=== PATIENT | female | born 1960 | race Caucasian/White ===

== ENCOUNTER 2017-01-24 15:39 | Emergency (ER) | payer MEDICARE, MEDICAID ==
[~2017-01-24] VITALS: Ht 160 cm; Wt 77.0 kg
[~2017-01-24 15:39] MED LIST: ALBU8.5H8 INH; BUDE10.2 INH; LEVO25TA4 PO; LOVA10TA PO; OMEP-110 PO; OXCA600T PO; PROP10TA PO; RISP1TAB45 PO; TIOT18CA INH; TOLT2CAP PO
[2017-01-24 16:20] LABS: PATH.CAST-FLAG NOT PRESENT; SPERM-FLAG NOT PRESENT; SRC-FLAG NOT PRESENT; XTAL-FLAG NOT PRESENT; YLC-FLAG NOT PRESENT
[2017-01-24] MEDS ORDERED: MORPHINE SULFATE 4 MG/ML, 1ML IVPush PRN (16:30)
[2017-01-24] MEDS ORDERED: SODIUM CHLORIDE FLUSH 10ML SYR IVF ONE (16:30)
[2017-01-24] MEDS ORDERED: ONDANSETRON 2MG/ML, 2ML IVPush ONE (16:30)
[2017-01-24] MEDS ORDERED: SODIUM CHLORIDE 0.9% 1,000ML IVBOLUS ONE (16:30)
[2017-01-24] MEDS ORDERED: ONDANSETRON 2MG/ML, 2ML ONE (16:38)
[2017-01-24] MEDS ORDERED: MORPHINE SULFATE 4 MG/ML, 1ML ONE (16:38)
[2017-01-24 16:48] LABS: HEMATOCRIT 41.1 % (34.6-47.8); HEMOGLOBIN 13.9 g/dL (11.7-16.4); WHITE BLOOD COUNT 8.6 x10^3/uL (3.4-10)
[2017-01-24 17:00] LABS: ASPARTATE AMINO TRANSFERASE 7 U/L (15-37); BLOOD UREA NITROGEN 8 mg/dL (7-18)
[2017-01-24] MEDS ORDERED: METRONIDAZOLE PMX 500MG/100ML 100 ML IV ONE (18:00)
[2017-01-24] MEDS ORDERED: CEFOTETAN PMX 1GM/50ML 50 ML IV ONE (18:00)
[2017-01-24] MEDS ORDERED: CEFOTETAN PMX 1GM/50ML 50 ML ONE (18:04)
[2017-01-24] MEDS ORDERED: METRONIDAZOLE PMX 500MG/100ML 100 ML ONE (18:04)
[2017-01-24] MEDS ORDERED: OMNIPAQUE 350 MG/ML, 100ML BOTTLE ONE (18:15)
[2017-01-24 19:04] VITALS: BP 100/70
[2017-01-26] MEDS ORDERED: NS + 20MEQ KCL 1,000 ML IV SCH (16:52)
[2017-01-26] MEDS ORDERED: METRONIDAZOLE PMX 500MG/100ML 100 ML IV SCH (17:00)
[2017-01-26] MEDS ORDERED: TRAZODONE 50MG TABLET PO PRN (17:00)
[2017-01-26] MEDS ORDERED: TEMPLATE NON-FORMULARY MED. (Albuterol Sulfate (Proair Hfa) 2 PUFF(S)) INH SCH (17:00)
[2017-01-26] MEDS ORDERED: ONDANSETRON 4 MG TABLET PO PRN (17:00)
[2017-01-26] MEDS ORDERED: morphine SULFATE 10 MG/ML, 1ML IVPush PRN (17:00)
[2017-01-26] MEDS ORDERED: CIPROFLOXACIN 500 MG TABLET PO ONE (17:00)
[2017-01-26] MEDS ORDERED: RISPERIDONE 1 MG TABLET PO SCH (21:00)
[2017-01-26] MEDS ORDERED: PROPRANOLOL 10 MG TABLET PO SCH (21:00)
[2017-01-26] MEDS ORDERED: TEMPLATE NON-FORMULARY MED. (Budesonide/Formoterol Fumarate (Symbicort 160-4.5 Mcg Inhaler INH SCH (21:00)
[2017-01-26] MEDS ORDERED: LACTULOSE 10 GM/15 ML UDC PO SCH (21:00)
[2017-01-27] MEDS ORDERED: OMEPRAZOLE 20 MG CAPSULE.DR PO SCH (09:00)
== END 2017-01-24 19:10 | disposition home or self-care (01) ==
LOC: ED 16:42
DX: K57.32 Diverticulitis of large intestine without perforation or abscess without bleeding (principal); J45.909 Unspecified asthma, uncomplicated; J44.9 Chronic obstructive pulmonary disease, unspecified; E78.5 Hyperlipidemia, unspecified; E11.9 Type 2 diabetes mellitus without complications; I10 Essential (primary) hypertension; E03.9 Hypothyroidism, unspecified; Z86.73 Personal history of transient ischemic attack (TIA), and cerebral infarction without residual deficits
CPT/HCPCS: 36415; 74177; 80053; 81001; 83605; 85025; 96361; 96365; 96367; 96375; 99285; J2405; J7030; Q9967; S0074

== ENCOUNTER 2017-01-26 13:03 | Inpatient (IN) | payer MEDICARE, MEDICAID ==
[~2017-01-26] VITALS: Ht 160 cm; Wt 81.9 kg
[2017-01-26] MEDS ORDERED: METR500T PO (13:29)
[2017-01-26] MEDS ORDERED: HYDR-3240 PO (13:29)
[2017-01-26] MEDS ORDERED: ONDA4TAB7 PO (13:29)
[2017-01-26] MEDS ORDERED: LEVO500T47 PO (13:29)
[2017-01-26] MEDS ORDERED: SODIUM CHLORIDE 0.9% 1,000 ML IV ONE (13:31)
[2017-01-26 13:51] LABS: HEMATOCRIT 39.7 % (34.6-47.8); HEMOGLOBIN 13.1 g/dL (11.7-16.4)
[2017-01-26] MEDS ORDERED: SODIUM CHLORIDE FLUSH 10ML SYR IVF ONE (14:00)
[2017-01-26] MEDS ORDERED: ONDANSETRON 2MG/ML, 2ML IVPush ONE (14:00)
[2017-01-26] MEDS ORDERED: SODIUM CHLORIDE 0.9% 1,000ML IVBOLUS ONE (14:00)
[2017-01-26] MEDS ORDERED: HYDROmorphone 1 MG/ML, 1ML IVPush PRN (14:00)
[2017-01-26 14:03] LABS: BLOOD UREA NITROGEN 7 mg/dL (7-18)
[2017-01-26 14:07] LABS: ASPARTATE AMINO TRANSFERASE 9 U/L (15-37)
[2017-01-26 16:23] VITALS: BP 131/75
[2017-01-26] MEDS ORDERED: OMNIPAQUE 350 MG/ML, 100ML BOTTLE ONE (17:05)
[2017-01-26] MEDS ORDERED: DOCUSATE 100 MG CAPSULE PO PRN (18:00)
[2017-01-26] MEDS ORDERED: GUAIFENESIN/DM 200-20MG, 10ML UDC PO PRN (18:00)
[2017-01-26] MEDS ORDERED: ONDANSETRON ODT 4 MG PO PRN (18:00)
[2017-01-26] MEDS ORDERED: TRAZODONE 50MG TABLET PO PRN (18:00)
[2017-01-26] MEDS ORDERED: DICYCLOMINE 20 MG TABLET PO PRN (19:00)
[2017-01-26 19:31] VITALS: BP 122/69
[2017-01-26 20:00] VITALS: BP 96/57
[2017-01-26] MEDS: NICOTINE 14MG/24 HR PATCH.TD24 TD SCH (20:06)
[2017-01-26] MEDS: ENOXAPARIN 40 MG/0.4 ML SQ SCH (20:06)
[2017-01-26] MEDS: METRONIDAZOLE PMX 500MG/100ML 100 ML IV SCH (20:06)
[2017-01-26] MEDS: TOLTERODINE LA 4MG CAP.ER.24H PO SCH (20:06)
[2017-01-26] MEDS: CIPROFLOXACIN 500 MG TABLET PO SCH (20:06)
[2017-01-26] MEDS: PROPRANOLOL 20 MG TABLET PO SCH (20:06)
[2017-01-26] MEDS: NS + 20MEQ KCL 1,000 ML IV SCH (20:07)
[2017-01-26] MEDS: morphine SULFATE 10 MG/ML, 1ML IVPush PRN (20:09)
[2017-01-26] MEDS: ALBUTEROL/IPRATROPIUM 2.5MG/0.5MG, 3 ML NPPB SCH (21:10)
[2017-01-27 01:00] VITALS: BP 96/57
[2017-01-27] MEDS: METRONIDAZOLE PMX 500MG/100ML 100 ML IV SCH ×3 (02:57→18:29)
[2017-01-27] MEDS: morphine SULFATE 10 MG/ML, 1ML IVPush PRN ×2 (03:12→08:32)
[2017-01-27] MEDS: NS + 20MEQ KCL 1,000 ML IV SCH ×2 (05:49→17:17)
[2017-01-27] MEDS: PROPRANOLOL 20 MG TABLET PO SCH ×2 (05:50→17:17)
[2017-01-27] MEDS: ALBUTEROL/IPRATROPIUM 2.5MG/0.5MG, 3 ML NPPB SCH ×4 (07:05→20:00)
[2017-01-27 08:00] VITALS: BP 101/62
[2017-01-27] MEDS: CIPROFLOXACIN 500 MG TABLET PO SCH (08:30)
[2017-01-27 13:58] VITALS: BP 130/84
[2017-01-27] MEDS: NICOTINE 14MG/24 HR PATCH.TD24 TD SCH (15:52)
[2017-01-27] MEDS ORDERED: OXCARBAZEPINE 150 MG TABLET PO ONE (16:00)
[2017-01-27] MEDS: ENOXAPARIN 40 MG/0.4 ML SQ SCH (18:29)
[2017-01-27 19:23] VITALS: BP 115/69
[2017-01-27] MEDS: TOLTERODINE LA 4MG CAP.ER.24H PO SCH (22:16)
[2017-01-27] MEDS: OXCARBAZEPINE 150 MG TABLET PO SCH (22:16)
[2017-01-28 00:52] VITALS: BP 146/77
[2017-01-28] MEDS: METRONIDAZOLE PMX 500MG/100ML 100 ML IV SCH ×2 (02:59→11:16)
[2017-01-28] MEDS ORDERED: LEVOTHYROXINE 50 MCG TABLET PO SCH (06:00)
[2017-01-28] MEDS: PROPRANOLOL 20 MG TABLET PO SCH (06:02)
[2017-01-28 07:15] VITALS: BP 126/83
[2017-01-28] MEDS: ALBUTEROL/IPRATROPIUM 2.5MG/0.5MG, 3 ML NPPB SCH ×3 (07:30→14:49)
[2017-01-28] MEDS: OXCARBAZEPINE 150 MG TABLET PO SCH (08:08)
[2017-01-28] MEDS: NS + 20MEQ KCL 1,000 ML IV SCH (08:08)
[2017-01-28 08:47] VITALS: BP 127/88
[2017-01-28] MEDS ORDERED: LEVO50TA PO (13:38)
== END 2017-01-28 15:33 | disposition home or self-care (01) | DRG 372 ==
LOC: ED 14:40 → 3NE 15:02
PROVIDERS: ADMIT Internal Medicine; ATTEND Internal Medicine
DX: A04.7 Enterocolitis due to Clostridium difficile (principal); K57.32 Diverticulitis of large intestine without perforation or abscess without bleeding; I10 Essential (primary) hypertension; F32.9 Major depressive disorder, single episode, unspecified; J44.9 Chronic obstructive pulmonary disease, unspecified; K21.9 Gastro-esophageal reflux disease without esophagitis; F17.200 Nicotine dependence, unspecified, uncomplicated; E78.5 Hyperlipidemia, unspecified; E03.9 Hypothyroidism, unspecified; J98.01 Acute bronchospasm; Z79.899 Other long term (current) drug therapy; Z86.73 Personal history of transient ischemic attack (TIA), and cerebral infarction without residual deficits; Z90.49 Acquired absence of other specified parts of digestive tract
CPT/HCPCS: 36415; 74022; 74177; 80053; 83690; 84443; 85025; 87324; 87493; 94640; 96361; 96374; 96375; J1170; J1650; J2405; J3480; J7620; Q9967; J2270; J7030

== ENCOUNTER 2017-09-26 19:19 | Emergency (ER) | payer MEDICARE, MEDICAID ==
[~2017-09-26] VITALS: Ht 162.6 cm; Wt 76.0 kg
[~2017-09-26 19:19] MED LIST changes: +HYDR-3240 PO; +LEVO500T47 PO; +LEVO50TA PO; +METR500T PO; +ONDA4TAB7 PO
[2017-09-26 19:22] VITALS: BP 127/72
[2017-09-26] MEDS ORDERED: ALBUTEROL/IPRATROPIUM 2.5MG/0.5MG, 3 ML ONE (20:20)
[2017-09-26] MEDS: ALBUTEROL/IPRATROPIUM 2.5MG/0.5MG, 3 ML NPPB SCH ×2 (20:30→21:26)
[2017-09-26 20:33] LABS: BASOPHILS # (AUTO) 0.05 x10^3/uL (0-0.1); BASOPHILS % (AUTO) 1 % (0-1); EOSINOPHILS # (AUTO) 0.07 x10^3/uL (0-0.4); EOSINOPHILS % (AUTO) 1 % (1-7); LYMPHOCYTES # (AUTO) 3.01 x10^3/uL (1-3.4); LYMPHOCYTES % (AUTO) 51 % (22-44); MD NO; MEAN CORPUSCULAR HGB CONC 33.2 g/dL (32.4-35.8); MEAN CORPUSCULAR VOLUME 90.3 fL (80-100); MEAN PLATELET VOLUME 9.1 fL (7.4-10.4); MONOCYTES # (AUTO) 0.45 x10^3/uL (0.2-0.8); MONOCYTES % (AUTO) 8 % (2-9); NEUTROPHILS # (AUTO) 2.33 x10^3/uL (1.8-6.8); NEUTROPHILS % (AUTO) 39 % (42-75); PLATELET COUNT 188 x10^3/uL (130-400); RED BLOOD COUNT 4.62 x10^6/uL (3.82-5.3); RED CELL DISTRIBUTION WIDTH 13.4 % (9.6-15.2)
[2017-09-26 20:44] LABS: ALBUMIN 3.6 g/dL (3.4-5.0); ANION GAP 7 mmol/L (5-15); CHLORIDE 106 mmol/L (98-107)
[2017-09-26 20:46] LABS: CREATININE 0.71 mg/dL (0.55-1.02)
[2017-09-26] MEDS ORDERED: ALBUTEROL/IPRATROPIUM 2.5MG/0.5MG, 3 ML NEB ONE (21:00)
== END 2017-09-26 21:46 | disposition home or self-care (01) ==
LOC: ED 20:00
DX: J44.1 Chronic obstructive pulmonary disease with (acute) exacerbation (principal); E11.9 Type 2 diabetes mellitus without complications; I10 Essential (primary) hypertension; E78.5 Hyperlipidemia, unspecified; E03.9 Hypothyroidism, unspecified; Z86.73 Personal history of transient ischemic attack (TIA), and cerebral infarction without residual deficits
CPT/HCPCS: 36415; 71046; 80048; 82040; 85025; 93005; 94640; 99285; J7620

== ENCOUNTER 2017-11-18 17:14 | Emergency (ER) | payer MEDICARE, MEDICAID ==
[~2017-11-18] VITALS: Ht 162.6 cm; Wt 74.9 kg
[2017-11-18 18:07] LABS: MICROSCOPIC NOT IND
[2017-11-18 18:10] LABS: CULTURE INDICATED? NO
[2017-11-18 18:14] LABS: BASOPHILS # (AUTO) 0.08 x10^3/uL (0-0.1); BASOPHILS % (AUTO) 1 % (0-1); EOSINOPHILS # (AUTO) 0.03 x10^3/uL (0-0.4); EOSINOPHILS % (AUTO) 0 % (1-7); LYMPHOCYTES # (AUTO) 2.07 x10^3/uL (1-3.4); LYMPHOCYTES % (AUTO) 18 % (22-44); MD NO; MEAN CORPUSCULAR HGB CONC 33.2 g/dL (32.4-35.8); MEAN CORPUSCULAR VOLUME 90.4 fL (80-100); MEAN PLATELET VOLUME 9.5 fL (7.4-10.4); MONOCYTES # (AUTO) 0.92 x10^3/uL (0.2-0.8); MONOCYTES % (AUTO) 8 % (2-9); NEUTROPHILS # (AUTO) 8.32 x10^3/uL (1.8-6.8); NEUTROPHILS % (AUTO) 73 % (42-75); PLATELET COUNT 227 x10^3/uL (130-400); RED BLOOD COUNT 4.84 x10^6/uL (3.82-5.3); RED CELL DISTRIBUTION WIDTH 14.4 % (9.6-15.2)
[2017-11-18 18:19] LABS: ALANINE AMINOTRANSFERASE 16 U/L (12-78); ALBUMIN 3.6 g/dL (3.4-5.0); ANION GAP 6 mmol/L (5-15); CALCIUM 9.3 mg/dL (8.5-10.1); CHLORIDE 105 mmol/L (98-107); CREATININE 0.71 mg/dL (0.55-1.02)
[2017-11-18 18:21] LABS: ALKALINE PHOSPHATASE 131 U/L (45-117); BILIRUBIN,TOTAL 0.9 mg/dL (0.2-1.0); TOTAL PROTEIN 7.2 g/dL (6.4-8.2)
[2017-11-18] MEDS ORDERED: ONDANSETRON ODT 4 MG ONE (18:52)
[2017-11-18] MEDS ORDERED: HYDROmorphone 2 MG/ML, 1ML ONE (18:52)
[2017-11-18] MEDS ORDERED: ONDANSETRON ODT 4 MG PO ONE (19:00)
[2017-11-18] MEDS ORDERED: HYDROmorphone 1 MG/ML, 1ML IVPush PRN (19:00)
[2017-11-18] MEDS ORDERED: OMNIPAQUE 350 MG/ML, 100ML BOTTLE ONE (19:49)
[2017-11-18] MEDS ORDERED: CIPROFLOXACIN 500 MG TABLET ONE (20:48)
[2017-11-18] MEDS ORDERED: METRONIDAZOLE PMX 500MG/100ML 100 ML ONE (20:48)
[2017-11-18] MEDS ORDERED: METRONIDAZOLE PMX 500MG/100ML 100 ML IVPB ONE (21:00)
[2017-11-18] MEDS ORDERED: CIPROFLOXACIN 500 MG TABLET PO ONE (21:00)
[2017-11-18 21:16] VITALS: BP 101/59
== END 2017-11-18 21:41 | disposition home or self-care (01) ==
LOC: ED 20:42 → EDIP 21:31 → UNDOADMIN 21:31 → ED 21:41
DX: K57.32 Diverticulitis of large intestine without perforation or abscess without bleeding (principal); J44.9 Chronic obstructive pulmonary disease, unspecified; E78.5 Hyperlipidemia, unspecified; I10 Essential (primary) hypertension; E11.9 Type 2 diabetes mellitus without complications; F17.210 Nicotine dependence, cigarettes, uncomplicated; Z86.73 Personal history of transient ischemic attack (TIA), and cerebral infarction without residual deficits
CPT/HCPCS: 36415; 74177; 80053; 81003; 83690; 85025; 96365; 96375; 99285; J1170; Q0162; Q9967

== ENCOUNTER 2017-11-20 09:45 | Emergency (ER) | payer MEDICARE, MEDICAID ==
[~2017-11-20] VITALS: Ht 161.3 cm; Wt 77.9 kg
[2017-11-20] MEDS ORDERED: MAALOX/HYOSCYAMINE/LIDOCAINE 45 ML BTL ONE (10:15)
[2017-11-20] MEDS ORDERED: ONDANSETRON 2MG/ML, 2ML ONE (10:15)
[2017-11-20] MEDS ORDERED: FAMOTIDINE 20 MG/2 ML ONE (10:16)
[2017-11-20] MEDS ORDERED: MAALOX/HYOSCYAMINE/LIDOCAINE 45 ML BTL PO ONE (10:30)
[2017-11-20] MEDS ORDERED: ONDANSETRON 2MG/ML, 2ML IVPush ONE (10:30)
[2017-11-20] MEDS ORDERED: SODIUM CHLORIDE FLUSH 10ML SYR IVF ONE (10:30)
[2017-11-20] MEDS ORDERED: FAMOTIDINE 20 MG/2 ML IVP ONE (10:30)
[2017-11-20] MEDS ORDERED: SODIUM CHLORIDE 0.9% 1,000ML IVBOLUS ONE (10:30)
[2017-11-20 10:55] LABS: ALANINE AMINOTRANSFERASE 18 U/L (12-78); ALBUMIN 3.3 g/dL (3.4-5.0); ANION GAP 7 mmol/L (5-15); CALCIUM 8.5 mg/dL (8.5-10.1); CHLORIDE 99 mmol/L (98-107); CREATININE 0.76 mg/dL (0.55-1.02); TROPONIN I < 0.015 ng/mL (0.000-0.045)
[2017-11-20 10:57] LABS: ALKALINE PHOSPHATASE 106 U/L (45-117); BILIRUBIN,TOTAL 0.4 mg/dL (0.2-1.0); TOTAL PROTEIN 6.5 g/dL (6.4-8.2)
[2017-11-20 10:59] LABS: BASOPHILS # (AUTO) 0.04 x10^3/uL (0-0.1); BASOPHILS % (AUTO) 1 % (0-1); EOSINOPHILS # (AUTO) 0.11 x10^3/uL (0-0.4); EOSINOPHILS % (AUTO) 1 % (1-7); LYMPHOCYTES # (AUTO) 1.73 x10^3/uL (1-3.4); LYMPHOCYTES % (AUTO) 22 % (22-44); MD NO; MEAN CORPUSCULAR HGB CONC 33.3 g/dL (32.4-35.8); MEAN CORPUSCULAR VOLUME 90.2 fL (80-100); MEAN PLATELET VOLUME 9.6 fL (7.4-10.4); MONOCYTES # (AUTO) 0.47 x10^3/uL (0.2-0.8); MONOCYTES % (AUTO) 6 % (2-9); NEUTROPHILS # (AUTO) 5.68 x10^3/uL (1.8-6.8); NEUTROPHILS % (AUTO) 71 % (42-75); PLATELET COUNT 210 x10^3/uL (130-400); RED BLOOD COUNT 4.23 x10^6/uL (3.82-5.3)
[2017-11-20 11:35] LABS: MICROSCOPIC AUTO
[2017-11-20 11:39] LABS: CULTURE INDICATED? YES
[2017-11-20] MEDS ORDERED: OMNIPAQUE 350 MG/ML, 100ML BOTTLE ONE (12:32)
[2017-11-20 13:57] VITALS: BP 99/69
== END 2017-11-20 14:01 | disposition home or self-care (01) ==
LOC: ED 11:22
DX: K57.32 Diverticulitis of large intestine without perforation or abscess without bleeding (principal); F31.9 Bipolar disorder, unspecified; E11.9 Type 2 diabetes mellitus without complications; I10 Essential (primary) hypertension; E78.5 Hyperlipidemia, unspecified; E03.9 Hypothyroidism, unspecified; J44.9 Chronic obstructive pulmonary disease, unspecified; Z86.73 Personal history of transient ischemic attack (TIA), and cerebral infarction without residual deficits; Z90.49 Acquired absence of other specified parts of digestive tract; Z90.710 Acquired absence of both cervix and uterus; Z98.51 Tubal ligation status
CPT/HCPCS: 36415; 74177; 76700; 80053; 81001; 83690; 84484; 85025; 87086; 93005; 96361; 96374; 96375; 99285; J2405; J7030; Q9967; S0028

== ENCOUNTER 2018-01-18 00:22 | Emergency (ER) | payer MEDICARE, MEDICAID ==
[~2018-01-18] VITALS: Ht 160 cm; Wt 75.8 kg
[2018-01-18 00:24] VITALS: BP 111/70
[2018-01-18] MEDS ORDERED: OXYcodone/APAP 10/325MG TABLET PO ONE (01:00)
[2018-01-18] MEDS ORDERED: ONDANSETRON ODT 4 MG PO ONE (01:00)
[2018-01-18] MEDS ORDERED: ONDANSETRON ODT 4 MG ONE (01:21)
[2018-01-18] MEDS ORDERED: OXYcodone/APAP 10/325MG TABLET ONE (01:21)
== END 2018-01-18 02:26 | disposition home or self-care (01) ==
LOC: ED 00:42
DX: K57.92 Diverticulitis of intestine, part unspecified, without perforation or abscess without bleeding (principal); E03.9 Hypothyroidism, unspecified; E78.5 Hyperlipidemia, unspecified; J44.9 Chronic obstructive pulmonary disease, unspecified; I10 Essential (primary) hypertension; E11.9 Type 2 diabetes mellitus without complications; F31.9 Bipolar disorder, unspecified; Z90.49 Acquired absence of other specified parts of digestive tract; Z90.710 Acquired absence of both cervix and uterus; Z86.73 Personal history of transient ischemic attack (TIA), and cerebral infarction without residual deficits
CPT/HCPCS: 99283; Q0162

== ENCOUNTER → 2018-04-13 | Outpatient (CLI) | payer MEDICARE, MEDICAID ==
[~2018-04-13] MED LIST changes: +ALBU18HF PO; +LEVO50TA5 PO; +LOVA40TA2 PO; -OXCA600T PO; +OXCA600T10 PO; +PROP20TA PO; +RISP2TAB3 PO
[2018-04-13 15:54] LABS: ALANINE AMINOTRANSFERASE 24 U/L (12-78); ALBUMIN 3.6 g/dL (3.4-5.0); ANION GAP 7 mmol/L (5-15); CALCIUM 8.7 mg/dL (8.5-10.1); CHLORIDE 104 mmol/L (98-107); CREATININE 0.83 mg/dL (0.55-1.02)
[2018-04-13 15:56] LABS: ALKALINE PHOSPHATASE 117 U/L (45-117); BILIRUBIN,TOTAL 0.3 mg/dL (0.2-1.0); TOTAL PROTEIN 6.6 g/dL (6.4-8.2)
[2018-04-13 16:13] LABS: BASOPHILS # (AUTO) 0.03 x10^3/uL (0-0.1); BASOPHILS % (AUTO) 0 % (0-1); EOSINOPHILS # (AUTO) 0.14 x10^3/uL (0-0.4); EOSINOPHILS % (AUTO) 2 % (1-7); LYMPHOCYTES # (AUTO) 2.88 x10^3/uL (1-3.4); LYMPHOCYTES % (AUTO) 38 % (22-44); MD NO; MEAN CORPUSCULAR HEMOGLOBIN 30.4 pg (27.0-34.8); MEAN CORPUSCULAR HGB CONC 33.2 g/dL (32.4-35.8); MEAN CORPUSCULAR VOLUME 91.5 fL (80-100); MEAN PLATELET VOLUME 9.3 fL (7.4-10.4); MONOCYTES # (AUTO) 0.52 x10^3/uL (0.2-0.8); MONOCYTES % (AUTO) 7 % (2-9); NEUTROPHILS # (AUTO) 4.08 x10^3/uL (1.8-6.8); NEUTROPHILS % (AUTO) 53 % (42-75); PLATELET COUNT 217 x10^3/uL (130-400); RED BLOOD COUNT 4.36 x10^6/uL (3.82-5.3); RED CELL DISTRIBUTION WIDTH 15.1 % (9.6-15.2)
== END | disposition home or self-care (01) ==
LOC: STAR 14:47
PROVIDERS: ATTEND Surgery
DX: Z01.818 Encounter for other preprocedural examination (principal)
CPT/HCPCS: 36415; 80053; 85025; 93005

== ENCOUNTER 2018-06-06 23:32 | Emergency (ER) | payer MEDICARE, MEDICAID ==
[~2018-06-06] VITALS: Ht 160 cm; Wt 70.2 kg
[~2018-06-06 23:32] MED LIST changes: +NICO-486 TD; -PROP10TA PO; +PROP10TA16 PO
[2018-06-06 23:48] VITALS: BP 139/72
--- NOTE | 2018-06-06 23:55 | NUR ---
HAVING ISSUES WITH ILIOSTOMY. STATED UNABLE TO GET IT TO SEAL. HAS RUN THROUGH ALL HER PRODUCTS. HAS BLEEDING AROUND STOMA AND STATED THERE IS "BLACK SKIN" FORMING AROUND EDGES OF STOMA
--- NOTE | 2018-06-07 01:02 | NUR ---
TASK RN: PT PROVIDED OSTOMY EQUIPMENT BY PRIMARY RN, JM. PT DENIES QUESTIONS/CONCERNS. DC EDUCATION PROVIDED, PT DEMONSTRATES UNDERSTANDING. PT AMBULATED STEADILY TO DC WITH RN
== END 2018-06-07 01:31 | disposition home or self-care (01) ==
LOC: ED 06-07 00:27
DX: K91.89 Other postprocedural complications and disorders of digestive system (principal); I11.9 Hypertensive heart disease without heart failure; E11.9 Type 2 diabetes mellitus without complications; F31.9 Bipolar disorder, unspecified; J44.9 Chronic obstructive pulmonary disease, unspecified; E78.5 Hyperlipidemia, unspecified; E03.9 Hypothyroidism, unspecified; Z90.89 Acquired absence of other organs; Z86.73 Personal history of transient ischemic attack (TIA), and cerebral infarction without residual deficits; Z90.49 Acquired absence of other specified parts of digestive tract
CPT/HCPCS: 99281; 99283

== ENCOUNTER 2018-06-10 08:48 | Outpatient (CLI) | payer MEDICARE, MEDICAID | END 2018-06-10 23:59 | disposition home or self-care (01) | LOC: WOUND 08:48 | PROVIDERS: ATTEND Family Medicine | DX: T81.89XA Other complications of procedures, not elsewhere classified, initial encounter (principal); F31.9 Bipolar disorder, unspecified; J44.9 Chronic obstructive pulmonary disease, unspecified; E78.5 Hyperlipidemia, unspecified; E03.9 Hypothyroidism, unspecified; I11.9 Hypertensive heart disease without heart failure; F41.9 Anxiety disorder, unspecified; Z86.73 Personal history of transient ischemic attack (TIA), and cerebral infarction without residual deficits; Z90.710 Acquired absence of both cervix and uterus; Z90.49 Acquired absence of other specified parts of digestive tract; Z87.891 Personal history of nicotine dependence; Y83.8 Other surgical procedures as the cause of abnormal reaction of the patient, or of later complication, without mention of misadventure at the time of the procedure; Y92.89 Other specified places as the place of occurrence of the external cause | CPT/HCPCS: G0463 ==

== ENCOUNTER → 2018-06-15 | Outpatient (CLI) | payer MEDICARE, MEDICAID | END | disposition home or self-care (01) | LOC: WOUND 08:42 | PROVIDERS: ATTEND Internal Medicine | DX: T81.89XD Other complications of procedures, not elsewhere classified, subsequent encounter (principal); F31.9 Bipolar disorder, unspecified; J44.9 Chronic obstructive pulmonary disease, unspecified; E11.9 Type 2 diabetes mellitus without complications; E78.5 Hyperlipidemia, unspecified; E03.9 Hypothyroidism, unspecified; I11.9 Hypertensive heart disease without heart failure; F41.9 Anxiety disorder, unspecified; Z86.73 Personal history of transient ischemic attack (TIA), and cerebral infarction without residual deficits; Z90.710 Acquired absence of both cervix and uterus; Z90.49 Acquired absence of other specified parts of digestive tract; Z87.891 Personal history of nicotine dependence; Y83.8 Other surgical procedures as the cause of abnormal reaction of the patient, or of later complication, without mention of misadventure at the time of the procedure | CPT/HCPCS: G0463 ==

== ENCOUNTER 2018-06-22 10:16 | Inpatient (IN) | payer MEDICARE, MEDICAID ==
[2018-06-17 10:12] VITALS: BP 108/68
[~2018-06-22] VITALS: Ht 160 cm; Wt 72.5 kg
[2018-06-22] MEDS ORDERED: LACTATED RINGERS 1,000 ML IV SCH (11:04)
[2018-06-22] MEDS ORDERED: MIDAZOLAM 1 MG/ML, 2ML ONE (12:39)
[2018-06-22] MEDS ORDERED: FENTANYL PF 250 MCG/5ML ONE (12:39)
[2018-06-22] MEDS ORDERED: SUCCINYLCHOLINE 20 MG/ML, 10ML ONE (12:42)
[2018-06-22] MEDS ORDERED: PROPOFOL 10 MG/ML, 20ML ONE (12:43)
[2018-06-22] MEDS ORDERED: ONDANSETRON 2MG/ML, 2ML ONE ×2 (12:46→12:47)
[2018-06-22] MEDS ORDERED: DEXAMETHASONE 4 MG/ML, 1ML ONE ×2 (12:46→12:47)
[2018-06-22] MEDS ORDERED: CEFAZOLIN 1,000 MG ONE ×2 (12:47)
[2018-06-22] MEDS ORDERED: KETOROLAC 30 MG/1 ML ONE (12:53)
[2018-06-22] MEDS ORDERED: NEOSTIGMINE 1 MG/ML, 10ML ONE (12:53)
[2018-06-22] MEDS ORDERED: ROCURONIUM 10 MG/ML,10ML ONE (12:53)
[2018-06-22] MEDS ORDERED: ALBUTEROL HFA 90 MCG/SPRAY ONE (13:01)
[2018-06-22] MEDS ORDERED: MIDAZOLAM 1 MG/ML, 2ML IV PRN (13:30)
[2018-06-22] MEDS ORDERED: HALOPERIDOL 5 MG/ML IV PRN (13:30)
[2018-06-22] MEDS ORDERED: DIAZEPAM 5 MG/ML, 2ML IVPush PRN (13:30)
[2018-06-22] MEDS ORDERED: hydrALAzine 20 MG/ML, 1ML IV PRN (13:30)
[2018-06-22] MEDS ORDERED: PROMETHAZINE 12.5 MG SUPP PR PRN (13:30)
[2018-06-22] MEDS ORDERED: EPHEDRINE 50 MG/ML, 1ML IVPush PRN (13:30)
[2018-06-22] MEDS ORDERED: ONDANSETRON 2MG/ML, 2ML IV PRN (13:30)
[2018-06-22] MEDS ORDERED: LABETALOL 5MG/ML, 20ML IV PRN (13:30)
[2018-06-22] MEDS ORDERED: ONDANSETRON ODT 8 MG PO PRN (13:30)
[2018-06-22] MEDS ORDERED: FENTANYL PF 100 MCG/2ML IV PRN (13:30)
[2018-06-22] MEDS ORDERED: MEPERIDINE/PF 25MG/0.5ML IVPush PRN (13:30)
[2018-06-22] MEDS ORDERED: PROMETHAZINE 25 MG/ML, 1ML IV PRN (13:30)
[2018-06-22] MEDS ORDERED: OXYcodone 5 MG/5 ML ORAL.SOL UDC PO PRN (13:30)
[2018-06-22] MEDS ORDERED: HYDROmorphone 2 MG/ML, 1ML IVPush PRN (13:30)
[2018-06-22] MEDS ORDERED: ALBUTEROL SULFATE 2.5 MG/3 ML NPPB PRN ×2 (13:30→17:00)
[2018-06-22] MEDS ORDERED: ACETAMINOPHEN 325 MG TABLET PO PRN (13:30)
[2018-06-22] MEDS ORDERED: MORPHINE SULFATE 4 MG/ML, 1ML IVPush PRN ×2 (13:30→14:30)
[2018-06-22] MEDS ORDERED: FENTANYL PF 100 MCG/2ML ONE ×3 (13:37→15:05)
[2018-06-22] MEDS ORDERED: GLYCOPYRROLATE 0.4 MG/2 ML, 2ML ONE (14:17)
[2018-06-22] MEDS: ACETAMINOPHEN 500 MG TABLET PO SCH ×2 (14:30→20:28)
[2018-06-22] MEDS ORDERED: ONDANSETRON 2MG/ML, 2ML IVPush PRN (14:30)
[2018-06-22] MEDS: KETOROLAC 30 MG/1 ML IVPush SCH ×2 (14:30→20:28)
[2018-06-22] MEDS ORDERED: DEXAMETHASONE 4 MG/ML, 1ML IVPush PRN (14:30)
[2018-06-22] MEDS ORDERED: HALOPERIDOL 5 MG/ML IVPush PRN (14:30)
[2018-06-22] MEDS ORDERED: OXYcodone 5 MG/5 ML ORAL.SOL UDC ONE (15:05)
[2018-06-22] MEDS ORDERED: ACETAMINOPHEN 650 MG/20.3 ML UDC ONE (15:06)
[2018-06-22] MEDS ORDERED: ALBUTEROL SULFATE 2.5 MG/3 ML NPPB SCH (17:00)
[2018-06-22] MEDS: OXYcodone IR 5MG TABLET PO PRN ×2 (19:07→23:13)
[2018-06-22 19:46] VITALS: BP 116/74
[2018-06-22 20:24] VITALS: BP 135/84
[2018-06-22] MEDS: RISPERIDONE 2 MG TABLET PO SCH (20:27)
[2018-06-22] MEDS: OXCARBAZEPINE 300MG TABLET PO SCH (20:27)
[2018-06-22] MEDS ORDERED: IPRATROPIUM 0.5 MG/2.5 ML INHA NPPB SCH (21:00)
[2018-06-22] MEDS ORDERED: ALBUTEROL/IPRATROPIUM 2.5MG/0.5MG, 3 ML NPPB SCH (21:00)
[2018-06-22] MEDS ORDERED: BUDESONIDE 0.5 MG/2 ML INHA NPPB SCH (21:00)
[2018-06-23 00:05] VITALS: BP 97/60
[2018-06-23] MEDS: KETOROLAC 30 MG/1 ML IVPush SCH ×4 (02:59→20:37)
[2018-06-23] MEDS: ACETAMINOPHEN 500 MG TABLET PO SCH ×4 (02:59→20:37)
[2018-06-23] MEDS: OXYcodone IR 5MG TABLET PO PRN ×3 (03:31→20:45)
[2018-06-23 04:00] VITALS: BP_SYST 89; BP_SYST 94; BP_DIAS 46; BP_DIAS 64
[2018-06-23 04:55] LABS: BASOPHILS # (AUTO) 0.03 x10^3/uL (0-0.1); BASOPHILS % (AUTO) 0 % (0-1); EOSINOPHILS # (AUTO) 0.01 x10^3/uL (0-0.4); EOSINOPHILS % (AUTO) 0 % (1-7); LYMPHOCYTES # (AUTO) 1.42 x10^3/uL (1-3.4); LYMPHOCYTES % (AUTO) 18 % (22-44); MD NO; MEAN CORPUSCULAR HEMOGLOBIN 30.5 pg (27.0-34.8); MEAN CORPUSCULAR HGB CONC 33.3 g/dL (32.4-35.8); MEAN CORPUSCULAR VOLUME 91.4 fL (80-100); MEAN PLATELET VOLUME 9.2 fL (7.4-10.4); MONOCYTES # (AUTO) 0.44 x10^3/uL (0.2-0.8); MONOCYTES % (AUTO) 6 % (2-9); NEUTROPHILS % (AUTO) 76 % (42-75); PLATELET COUNT 174 x10^3/uL (130-400); RED BLOOD COUNT 3.69 x10^6/uL (3.82-5.3); RED CELL DISTRIBUTION WIDTH 14.1 % (9.6-15.2)
[2018-06-23 05:00] LABS: ALBUMIN 2.7 g/dL (3.4-5.0); ANION GAP 8 mmol/L (5-15); CALCIUM 8.1 mg/dL (8.5-10.1); CHLORIDE 106 mmol/L (98-107)
[2018-06-23 05:02] LABS: CREATININE 0.58 mg/dL (0.55-1.02)
[2018-06-23] MEDS ORDERED: LEVOTHYROXINE 25 MCG TABLET ONE (05:59)
[2018-06-23] MEDS ORDERED: PROPRANOLOL 40 MG TABLET ONE (05:59)
[2018-06-23] MEDS: LEVOTHYROXINE 50 MCG TABLET PO SCH (06:02)
[2018-06-23] MEDS: PROPRANOLOL 20 MG TABLET PO SCH ×2 (06:02→12:47)
[2018-06-23 07:35] VITALS: BP 89/55
[2018-06-23] MEDS: ENOXAPARIN 40 MG/0.4 ML SQ SCH (08:27)
[2018-06-23] MEDS: OXCARBAZEPINE 300MG TABLET PO SCH ×2 (08:27→20:37)
[2018-06-23 12:48] VITALS: BP 93/60
[2018-06-23 14:46] VITALS: BP 89/55
[2018-06-23 18:42] VITALS: BP 102/65
[2018-06-23] MEDS: RISPERIDONE 2 MG TABLET PO SCH (20:37)
[2018-06-24] MEDS: OXYcodone IR 5MG TABLET PO PRN ×3 (01:01→10:02)
[2018-06-24 01:38] VITALS: BP 113/61
[2018-06-24] MEDS: ACETAMINOPHEN 500 MG TABLET PO SCH ×2 (03:20→10:02)
[2018-06-24] MEDS: KETOROLAC 30 MG/1 ML IVPush SCH ×2 (03:20→10:02)
[2018-06-24 05:21] LABS: ANION GAP 7 mmol/L (5-15); CALCIUM 8.1 mg/dL (8.5-10.1); CHLORIDE 101 mmol/L (98-107); CREATININE 0.52 mg/dL (0.55-1.02)
[2018-06-24 05:25] LABS: BASOPHILS # (AUTO) 0.02 x10^3/uL (0-0.1); BASOPHILS % (AUTO) 0 % (0-1); EOSINOPHILS # (AUTO) 0.16 x10^3/uL (0-0.4); EOSINOPHILS % (AUTO) 2 % (1-7); LYMPHOCYTES # (AUTO) 0.98 x10^3/uL (1-3.4); LYMPHOCYTES % (AUTO) 12 % (22-44); MD NO; MEAN CORPUSCULAR HEMOGLOBIN 30.3 pg (27.0-34.8); MEAN CORPUSCULAR HGB CONC 33.1 g/dL (32.4-35.8); MEAN CORPUSCULAR VOLUME 91.3 fL (80-100); MEAN PLATELET VOLUME 9.4 fL (7.4-10.4); MONOCYTES # (AUTO) 0.67 x10^3/uL (0.2-0.8); MONOCYTES % (AUTO) 8 % (2-9); NEUTROPHILS # (AUTO) 6.11 x10^3/uL (1.8-6.8); NEUTROPHILS % (AUTO) 77 % (42-75); PLATELET COUNT 181 x10^3/uL (130-400); RED BLOOD COUNT 3.79 x10^6/uL (3.82-5.3); RED CELL DISTRIBUTION WIDTH 13.6 % (9.6-15.2)
[2018-06-24] MEDS ORDERED: LEVOTHYROXINE 25 MCG TABLET ONE (06:25)
[2018-06-24] MEDS ORDERED: PROPRANOLOL 40 MG TABLET ONE (06:25)
[2018-06-24] MEDS: LEVOTHYROXINE 50 MCG TABLET PO SCH (06:28)
[2018-06-24] MEDS: PROPRANOLOL 20 MG TABLET PO SCH ×2 (06:28→13:05)
[2018-06-24 06:50] VITALS: BP 108/70
[2018-06-24] MEDS: OXCARBAZEPINE 300MG TABLET PO SCH (10:01)
[2018-06-24] MEDS: ENOXAPARIN 40 MG/0.4 ML SQ SCH (10:02)
[2018-06-24 13:02] VITALS: BP 111/71
[2018-06-24] MEDS ORDERED: ONDA4TAB7 PO (14:44)
[2018-06-24] MEDS ORDERED: OXYC5TAB2 PO (14:44)
== END 2018-06-24 15:00 | disposition home or self-care (01) | DRG 329 ==
LOC: ORIP 10:16 → EDSTATUS 12:30 → 4NOR 16:25 → DCLOUNGE 06-24 14:51
PROVIDERS: ADMIT Surgery; ATTEND Surgery
PROC: BD14YZZ Fluoroscopy of Colon using Other Contrast (ICD-10-PCS; 2018-06-22)
PROC: 0DQB0ZZ Repair Ileum, Open Approach (ICD-10-PCS; principal; 2018-06-22 12:30)
DX: Z43.2 Encounter for attention to ileostomy (principal); E43 Unspecified severe protein-calorie malnutrition; F31.9 Bipolar disorder, unspecified; I10 Essential (primary) hypertension; J44.9 Chronic obstructive pulmonary disease, unspecified; E03.9 Hypothyroidism, unspecified
CPT/HCPCS: 36415; 80048; 82040; 85025; 86850; 86900; 88304; G0378; J0690; J1100; J1650; J1885; J2250; J2405; J2704; J2710; J3010; J0330; J7120

== ENCOUNTER 2018-06-25 16:35 | Inpatient (IN) | payer MEDICARE, MEDICAID ==
[~2018-06-25] VITALS: Ht 160 cm; Wt 74.6 kg
[~2018-06-25 16:35] MED LIST changes: +OXYC5TAB2 PO
--- NOTE | 2018-06-25 17:00 | NUR ---
PT IN XRAY NOW.
--- NOTE | 2018-06-25 17:00 | NUR ---
FIRST CONTACT WITH PT. PT C/O ALL QUADRANTS ABD PAIN AFTER REVERSAL OF ILIOSTOMY 2 DAYS AGO. PT C/O NAUSEA WELL. PT AOX4. RESPS EVEN AND UNLABORED. BP/SPO2 MONITORS IN PLACE. CALL LIGHT WITHIN REACH. AT BEDSIDE AT THIS TIME. AWAITING ORDERS.
--- NOTE | 2018-06-25 17:15 | NUR ---
PT BACK TO ROOM FROM XRAY.
--- NOTE | 2018-06-25 17:24 | NUR ---
PT AMB TO BR AND BACK TO ROOM WITH STEADY GAIT FOR UA. UA SENT.
[2018-06-25] MEDS ORDERED: D5%-0.45NACL+KCL 20MEQ 1,000 ML IV ONE (17:30)
[2018-06-25 17:33] LABS: ALANINE AMINOTRANSFERASE 18 U/L (12-78); ALBUMIN 2.9 g/dL (3.4-5.0); ANION GAP 9 mmol/L (5-15); CALCIUM 9.1 mg/dL (8.5-10.1); CHLORIDE 102 mmol/L (98-107)
[2018-06-25 17:36] LABS: ALKALINE PHOSPHATASE 143 U/L (45-117); BILIRUBIN,TOTAL 0.4 mg/dL (0.2-1.0); CREATININE 0.66 mg/dL (0.55-1.02); TOTAL PROTEIN 6.7 g/dL (6.4-8.2)
[2018-06-25 17:46] LABS: MEAN CORPUSCULAR HEMOGLOBIN 30.1 pg (27.0-34.8); MEAN CORPUSCULAR HGB CONC 33.4 g/dL (32.4-35.8); MEAN CORPUSCULAR VOLUME 90.1 fL (80-100); MEAN PLATELET VOLUME 9.6 fL (7.4-10.4); PLATELET COUNT 266 x10^3/uL (130-400); RED BLOOD COUNT 4.58 x10^6/uL (3.82-5.3); RED CELL DISTRIBUTION WIDTH 13.6 % (9.6-15.2)
[2018-06-25 18:02] LABS: BASOPHILS # (AUTO) 0.03 x10^3/uL (0-0.1); BASOPHILS % (AUTO) 0 % (0-1); EOSINOPHILS # (AUTO) 0.11 x10^3/uL (0-0.4); EOSINOPHILS % (AUTO) 1 % (1-7); LYMPHOCYTES # (AUTO) 1.38 x10^3/uL (1-3.4); LYMPHOCYTES % (AUTO) 14 % (22-44); MD SCAN; MONOCYTES # (AUTO) 0.83 x10^3/uL (0.2-0.8); MONOCYTES % (AUTO) 8 % (2-9); NEUTROPHILS # (AUTO) 7.55 x10^3/uL (1.8-6.8); NEUTROPHILS % (AUTO) 76 % (42-75)
[2018-06-25 18:03] LABS: MICROSCOPIC INDICATED
[2018-06-25 18:26] LABS: CULTURE INDICATED? YES
--- NOTE | 2018-06-25 18:27 | NUR ---
PIV started, pt medicated per JUL. Pt's friend at bedside. Pt c/o increasing pain and states that it is "like contractions."
[2018-06-25] MEDS ORDERED: FENTANYL PF 100 MCG/2ML ONE (18:44)
--- NOTE | 2018-06-25 18:48 | NUR ---
update shared with pt's friend Magdalena with pt's ok.
[2018-06-25] MEDS ORDERED: BENZOCAINE 20% SPRAY 0.5ML ONE (18:56)
--- NOTE | 2018-06-25 18:56 | NUR ---
pt medicated per emar for pain. pt tolerated well. pt aox4. resps even and unlabored. pt's firiend at bedside. all monitors in place. call light within reach.
[2018-06-25] MEDS ORDERED: FENTANYL PF 100 MCG/2ML IV ONE (19:00)
[2018-06-25] MEDS: D5%-0.45NACL+KCL 20MEQ 1,000 ML IV SCH (19:04)
--- NOTE | 2018-06-25 19:24 | NUR ---
REPORT GIVEN TO ANGELLA BLACK. ALL QUESTIONS ANSWERED.
[2018-06-25] MEDS ORDERED: LABETALOL 5MG/ML, 20ML IVPush PRN (19:30)
[2018-06-25] MEDS ORDERED: ENALAPRILAT 1.25 MG/ML, 2ML IVPush PRN (19:30)
[2018-06-25] MEDS: PROPRANOLOL 20 MG TABLET PO SCH (19:30)
[2018-06-25] MEDS ORDERED: ALBUTEROL SULFATE 2.5 MG/3 ML HHN PRN (19:30)
[2018-06-25] MEDS ORDERED: LIDOCAINE GEL 2%, 5ML TP ONE (19:30)
--- NOTE | 2018-06-25 19:42 | NUR ---
NG TUBE INSERTED BY MONSERRAT BLACK. TUBE PLACEMENT VERIFIED BY AUSCULTATION. PT TOLERATED WELL. PT AOX4. RESPS EVEN AND UNLABORED.
--- NOTE | 2018-06-25 19:54 | NUR ---
VERBAL ORDER RECEIVED FROM MYLES SHARMA FOR ABD XRAY TO CONFIRM NG TUBE PLACEMENT. PT TRANSPORTED TO SURGICAL FLOOR, [facility] AT TRANSPORT.
[2018-06-25] MEDS ORDERED: BENZOCAINE AEROSOL SPRAY 20%, 60ML TP PRN (20:30)
[2018-06-25] MEDS: BUDESONIDE 0.5 MG/2 ML INHA NPPB SCH (21:00)
[2018-06-25] MEDS: ONDANSETRON 2MG/ML, 2ML IVPush PRN (21:24)
[2018-06-25] MEDS: morphine SULFATE 10 MG/ML, 1ML IVPush PRN (21:24)
[2018-06-25] MEDS: OXCARBAZEPINE 300MG TABLET PO SCH (23:29)
[2018-06-25] MEDS: RISPERIDONE 2 MG TABLET PO SCH (23:29)
[2018-06-25] MEDS: FAMOTIDINE 20 MG/2 ML IVPush SCH (23:30)
[2018-06-26] MEDS: morphine SULFATE 10 MG/ML, 1ML IVPush PRN ×4 (00:26→21:17)
[2018-06-26 00:42] VITALS: BP 107/69
[2018-06-26 05:37] LABS: BASOPHILS # (AUTO) 0.02 x10^3/uL (0-0.1); BASOPHILS % (AUTO) 0 % (0-1); EOSINOPHILS # (AUTO) 0.22 x10^3/uL (0-0.4); EOSINOPHILS % (AUTO) 3 % (1-7); LYMPHOCYTES # (AUTO) 1.48 x10^3/uL (1-3.4); LYMPHOCYTES % (AUTO) 18 % (22-44); MD NO; MEAN CORPUSCULAR HEMOGLOBIN 29.7 pg (27.0-34.8); MEAN CORPUSCULAR HGB CONC 32.6 g/dL (32.4-35.8); MEAN CORPUSCULAR VOLUME 91.2 fL (80-100); MEAN PLATELET VOLUME 9.4 fL (7.4-10.4); MONOCYTES # (AUTO) 0.74 x10^3/uL (0.2-0.8); MONOCYTES % (AUTO) 9 % (2-9); NEUTROPHILS % (AUTO) 70 % (42-75); PLATELET COUNT 247 x10^3/uL (130-400); RED BLOOD COUNT 4.07 x10^6/uL (3.82-5.3); RED CELL DISTRIBUTION WIDTH 13.7 % (9.6-15.2)
[2018-06-26 05:42] LABS: CHLORIDE 105 mmol/L (98-107)
[2018-06-26 05:47] LABS: ANION GAP 7 mmol/L (5-15); CALCIUM 8.4 mg/dL (8.5-10.1); CREATININE 0.58 mg/dL (0.55-1.02)
[2018-06-26] MEDS: ONDANSETRON 2MG/ML, 2ML IVPush PRN ×2 (07:24→21:17)
[2018-06-26 07:54] VITALS: BP 112/68
[2018-06-26] MEDS: D5%-0.45NACL+KCL 20MEQ 1,000 ML IV SCH ×2 (08:06→17:00)
[2018-06-26] MEDS: PROPRANOLOL 20 MG TABLET PO SCH ×2 (08:28→13:14)
[2018-06-26] MEDS: FAMOTIDINE 20 MG/2 ML IVPush SCH (08:28)
[2018-06-26] MEDS: OXCARBAZEPINE 300MG TABLET PO SCH ×2 (08:28→21:18)
[2018-06-26] MEDS ORDERED: POTASSIUM CHLORIDE 40 MEQ in SODIUM CHLORIDE 0.9% 500 ML IV ONE (09:00)
[2018-06-26] MEDS: BUDESONIDE 0.5 MG/2 ML INHA NPPB SCH ×2 (09:00→21:15)
[2018-06-26] MEDS: IPRATROPIUM 0.5 MG/2.5 ML INHA HHN SCH ×3 (09:00→21:15)
[2018-06-26] MEDS ORDERED: TEMPLATE NON-FORMULARY MED. (Budesonide/Formoterol Fumarate (Symbicort 160-4.5 Mcg Inhaler INH SCH (09:00)
[2018-06-26 13:14] VITALS: BP 119/82
[2018-06-26 14:00] VITALS: BP 119/82
[2018-06-26] MEDS: ALBUTEROL SULFATE 2.5 MG/3 ML HHN PRN (14:04)
[2018-06-26] MEDS ORDERED: TPN PER PHARMACY MC PRN (15:00)
[2018-06-26] MEDS ORDERED: SMOF TPN IV SCH ×2 (17:00)
[2018-06-26] MEDS ORDERED: DEXTROSE 50%, 50ML SYRINGE IVPush PRN (17:00)
[2018-06-26] MEDS ORDERED: DEXTROSE 10% 500 ML IV PRN (17:00)
[2018-06-26] MEDS ORDERED: [UNRECOGNIZED DRUG - OTHER] IV SCH (17:00)
[2018-06-26] MEDS ORDERED: FAT EMUL IV SCH ×2 (17:00)
[2018-06-26] MEDS ORDERED: [UNRECOGNIZED DRUG - OTHER] IV SCH (17:00)
[2018-06-26] MEDS ORDERED: AMINO ACID 10% IV SCH ×2 (17:00)
[2018-06-26] MEDS ORDERED: DEXTROSE 70% IV SCH ×2 (17:00)
[2018-06-26] MEDS: D5%-0.45% NACL 1,000 ML IV SCH (17:20)
[2018-06-26] MEDS: FILTER, DISP 1.2 MICRON FOR TPN/PVN IV PRN (17:20)
[2018-06-26 18:53] VITALS: BP 124/74
[2018-06-26] MEDS: RISPERIDONE 2 MG TABLET PO SCH (21:18)
[2018-06-26] MEDS: INSULIN REGULAR LOW DOSE QDAY SQ-INSULIN SCH (22:14)
[2018-06-26] MEDS: INSULIN REGULAR LOW DOSE Q6H X 48HRS SQ-INSULIN SCH (22:14)
[2018-06-27 00:12] VITALS: BP 94/53
[2018-06-27] MEDS: ACETAMINOPHEN 325 MG TABLET PO PRN ×3 (00:52→17:40)
[2018-06-27] MEDS: INSULIN REGULAR LOW DOSE Q6H X 48HRS SQ-INSULIN SCH ×4 (03:30→20:43)
[2018-06-27] MEDS: D5%-0.45% NACL 1,000 ML IV SCH ×2 (03:57→14:51)
[2018-06-27 04:08] LABS: ALANINE AMINOTRANSFERASE 9 U/L (12-78); ALBUMIN 2.2 g/dL (3.4-5.0); ANION GAP 6 mmol/L (5-15); CALCIUM 8.1 mg/dL (8.5-10.1); CHLORIDE 106 mmol/L (98-107); CREATININE 0.48 mg/dL (0.55-1.02)
[2018-06-27 04:13] LABS: ALKALINE PHOSPHATASE 96 U/L (45-117); BILIRUBIN,TOTAL 0.2 mg/dL (0.2-1.0); TOTAL PROTEIN 5.2 g/dL (6.4-8.2); TRIGLYCERIDES 114 mg/dL (50-200)
[2018-06-27] MEDS: LEVOTHYROXINE 50 MCG TABLET PO SCH (06:38)
[2018-06-27 07:42] VITALS: BP 111/72
[2018-06-27] MEDS: morphine SULFATE 10 MG/ML, 1ML IVPush PRN ×2 (08:39→20:43)
[2018-06-27] MEDS: OXCARBAZEPINE 300MG TABLET PO SCH ×2 (08:39→20:43)
[2018-06-27] MEDS: PROPRANOLOL 20 MG TABLET PO SCH ×2 (08:52→12:00)
[2018-06-27 10:05] LABS: MEAN CORPUSCULAR HEMOGLOBIN 29.6 pg (27.0-34.8); MEAN CORPUSCULAR HGB CONC 32.7 g/dL (32.4-35.8); MEAN CORPUSCULAR VOLUME 90.8 fL (80-100); MEAN PLATELET VOLUME 8.9 fL (7.4-10.4); PLATELET COUNT 238 x10^3/uL (130-400); RED BLOOD COUNT 3.62 x10^6/uL (3.82-5.3); RED CELL DISTRIBUTION WIDTH 13.6 % (9.6-15.2)
[2018-06-27 10:34] LABS: MD YES
[2018-06-27 10:35] LABS: BAND#(MANUAL) 0.62 x10^3/uL; BANDS%(MANUAL) 7 % (0-7); BASOS#(MANUAL) 0.09 x10^3/uL (0-0.1); BASOS% (MANUAL) 1 % (0-1); EOS#(MANUAL) 0.45 x10^3/uL (0.0-0.4); EOS% (MANUAL) 5 % (1-7); LYMPH#(MANUAL) 0.62 x10^3/uL (1-3.4); LYMPHS% (MANUAL) 7 % (22-44); MONOS#(MANUAL) 0.53 x10^3/uL (0.3-2.7); MONOS% (MANUAL) 6 % (2-9); MYELOCYTES# (MANUAL) 0.09 x10^3/uL (0-0); MYELOCYTES% (MANUAL) 1 % (0-0); SEGS% (MANUAL) 73 % (42-75)
[2018-06-27 10:36] LABS: <PLATELET ESTIMATE> ADEQUATE; <PLT MORPHOLOGY> NORMAL PLT MORPH; <RBC MORPHOLOGY> NORMAL
[2018-06-27] MEDS: NICOTINE 7 MG/24 HR PATCH.TD24 TD SCH (11:17)
[2018-06-27 12:06] VITALS: BP 100/65
[2018-06-27] MEDS ORDERED: DEXTROSE 70% IV SCH (17:00)
[2018-06-27] MEDS ORDERED: AMINO ACID 10% IV SCH (17:00)
[2018-06-27] MEDS ORDERED: FAT EMUL IV SCH (17:00)
[2018-06-27] MEDS ORDERED: SMOF TPN IV SCH (17:00)
[2018-06-27] MEDS ORDERED: [UNRECOGNIZED DRUG - OTHER] IV SCH (17:00)
[2018-06-27] MEDS: FILTER, DISP 1.2 MICRON FOR TPN/PVN IV PRN (17:40)
[2018-06-27] MEDS: RISPERIDONE 2 MG TABLET PO SCH (20:43)
[2018-06-27] MEDS: ONDANSETRON 2MG/ML, 2ML IVPush PRN (20:43)
[2018-06-27 20:58] VITALS: BP 103/66
[2018-06-27] MEDS: INSULIN REGULAR LOW DOSE QDAY SQ-INSULIN SCH (21:00)
[2018-06-28] MEDS: INSULIN REGULAR LOW DOSE Q6H X 48HRS SQ-INSULIN SCH ×3 (03:00→16:35)
[2018-06-28 03:06] VITALS: BP 108/71
[2018-06-28] MEDS: ACETAMINOPHEN 325 MG TABLET PO PRN ×4 (03:13→22:14)
[2018-06-28] MEDS: D5%-0.45% NACL 1,000 ML IV SCH ×2 (03:14→16:37)
[2018-06-28] MEDS: LEVOTHYROXINE 50 MCG TABLET PO SCH (04:49)
[2018-06-28] MEDS: morphine SULFATE 10 MG/ML, 1ML IVPush PRN ×2 (04:49→16:16)
[2018-06-28 05:20] LABS: ANION GAP 5 mmol/L (5-15); CALCIUM 8.1 mg/dL (8.5-10.1); CHLORIDE 106 mmol/L (98-107); CREATININE 0.57 mg/dL (0.55-1.02)
[2018-06-28 07:25] VITALS: BP 106/70
[2018-06-28] MEDS: OXCARBAZEPINE 300MG TABLET PO SCH ×2 (09:47→20:12)
[2018-06-28] MEDS: NICOTINE 7 MG/24 HR PATCH.TD24 TD SCH (09:48)
[2018-06-28] MEDS ORDERED: PROPRANOLOL 40 MG TABLET ONE (09:57)
[2018-06-28] MEDS: PROPRANOLOL 20 MG TABLET PO SCH ×2 (10:04→12:00)
[2018-06-28 12:44] VITALS: BP 90/66
[2018-06-28] MEDS: FILTER, DISP 1.2 MICRON FOR TPN/PVN IV PRN (16:36)
[2018-06-28] MEDS ORDERED: AMINO ACID 10% IV SCH (17:00)
[2018-06-28] MEDS ORDERED: DEXTROSE 70% IV SCH (17:00)
[2018-06-28] MEDS ORDERED: [UNRECOGNIZED DRUG - OTHER] IV SCH (17:00)
[2018-06-28] MEDS ORDERED: FAT EMUL IV SCH (17:00)
[2018-06-28] MEDS ORDERED: SMOF TPN IV SCH (17:00)
[2018-06-28 18:52] VITALS: BP 121/71
[2018-06-28] MEDS: RISPERIDONE 2 MG TABLET PO SCH (20:12)
[2018-06-28] MEDS: INSULIN REGULAR LOW DOSE QDAY SQ-INSULIN SCH (20:15)
[2018-06-29] MEDS: GUAIFENESIN 100 MG/5 ML, 5ML UDC PO PRN ×4 (00:06→18:39)
[2018-06-29] MEDS: morphine SULFATE 10 MG/ML, 1ML IVPush PRN ×2 (00:11→20:41)
[2018-06-29] MEDS: ALBUTEROL SULFATE 2.5 MG/3 ML HHN PRN ×2 (00:15→19:06)
[2018-06-29 01:02] VITALS: BP 114/70
[2018-06-29] MEDS: LEVOTHYROXINE 50 MCG TABLET PO SCH (04:16)
[2018-06-29] MEDS: ACETAMINOPHEN 325 MG TABLET PO PRN ×3 (04:16→18:40)
[2018-06-29] MEDS: D5%-0.45% NACL 1,000 ML IV SCH ×2 (04:17→17:01)
[2018-06-29 04:51] LABS: BASOPHILS # (AUTO) 0.05 x10^3/uL (0-0.1); BASOPHILS % (AUTO) 1 % (0-1); EOSINOPHILS # (AUTO) 0.44 x10^3/uL (0-0.4); EOSINOPHILS % (AUTO) 6 % (1-7); LYMPHOCYTES # (AUTO) 1.46 x10^3/uL (1-3.4); LYMPHOCYTES % (AUTO) 19 % (22-44); MD NO; MEAN CORPUSCULAR HEMOGLOBIN 30.2 pg (27.0-34.8); MEAN CORPUSCULAR HGB CONC 33.1 g/dL (32.4-35.8); MEAN CORPUSCULAR VOLUME 91.2 fL (80-100); MEAN PLATELET VOLUME 8.7 fL (7.4-10.4); MONOCYTES # (AUTO) 0.51 x10^3/uL (0.2-0.8); MONOCYTES % (AUTO) 7 % (2-9); NEUTROPHILS # (AUTO) 5.04 x10^3/uL (1.8-6.8); NEUTROPHILS % (AUTO) 67 % (42-75); PLATELET COUNT 259 x10^3/uL (130-400); RED BLOOD COUNT 3.47 x10^6/uL (3.82-5.3); RED CELL DISTRIBUTION WIDTH 13.9 % (9.6-15.2)
[2018-06-29 05:08] LABS: ANION GAP 6 mmol/L (5-15); CALCIUM 8.2 mg/dL (8.5-10.1); CHLORIDE 108 mmol/L (98-107); CREATININE 0.53 mg/dL (0.55-1.02)
[2018-06-29] MEDS: PROPRANOLOL 20 MG TABLET PO SCH ×2 (08:00→11:44)
[2018-06-29] MEDS ORDERED: PROPRANOLOL 40 MG TABLET ONE (08:39)
[2018-06-29] MEDS: OXCARBAZEPINE 300MG TABLET PO SCH ×2 (08:47→20:41)
[2018-06-29 09:06] VITALS: BP 117/71
[2018-06-29] MEDS: NICOTINE 7 MG/24 HR PATCH.TD24 TD SCH (10:08)
[2018-06-29 13:38] VITALS: BP 106/71
[2018-06-29] MEDS ORDERED: [UNRECOGNIZED DRUG - OTHER] IV SCH (17:00)
[2018-06-29] MEDS ORDERED: FILTER, DISP 1.2 MICRON FOR TPN/PVN IV PRN (17:00)
[2018-06-29] MEDS ORDERED: SMOF TPN IV SCH (17:00)
[2018-06-29] MEDS ORDERED: DEXTROSE 70% IV SCH (17:00)
[2018-06-29] MEDS ORDERED: AMINO ACID 10% IV SCH (17:00)
[2018-06-29] MEDS ORDERED: FAT EMUL IV SCH (17:00)
[2018-06-29 19:37] VITALS: BP 124/77
[2018-06-29] MEDS: RISPERIDONE 2 MG TABLET PO SCH (20:41)
[2018-06-30 01:00] VITALS: BP 123/81
[2018-06-30] MEDS: ACETAMINOPHEN 325 MG TABLET PO PRN ×3 (02:22→20:26)
[2018-06-30] MEDS: GUAIFENESIN 100 MG/5 ML, 5ML UDC PO PRN ×3 (03:10→20:32)
[2018-06-30] MEDS: morphine SULFATE 10 MG/ML, 1ML IVPush PRN (04:23)
[2018-06-30] MEDS: ALBUTEROL SULFATE 2.5 MG/3 ML HHN PRN ×2 (04:27→22:44)
[2018-06-30] MEDS: LEVOTHYROXINE 50 MCG TABLET PO SCH (05:37)
[2018-06-30] MEDS: D5%-0.45% NACL 1,000 ML IV SCH ×2 (05:38→18:43)
[2018-06-30 06:52] LABS: ANION GAP 7 mmol/L (5-15); CALCIUM 8.3 mg/dL (8.5-10.1); CHLORIDE 108 mmol/L (98-107); CREATININE 0.58 mg/dL (0.55-1.02)
[2018-06-30 07:12] VITALS: BP 113/71
[2018-06-30] MEDS: INSULIN REGULAR LOW DOSE QDAY SQ-INSULIN SCH (07:49)
[2018-06-30] MEDS: PROPRANOLOL 20 MG TABLET PO SCH ×2 (08:00→12:00)
[2018-06-30] MEDS: OXCARBAZEPINE 300MG TABLET PO SCH ×2 (09:29→20:26)
[2018-06-30] MEDS ORDERED: PROPRANOLOL 40 MG TABLET ONE ×2 (09:32→12:15)
[2018-06-30] MEDS: NICOTINE 7 MG/24 HR PATCH.TD24 TD SCH (09:35)
[2018-06-30 12:17] VITALS: BP 125/80
[2018-06-30] MEDS ORDERED: DEXTROSE 70% IV SCH ×2 (17:00)
[2018-06-30] MEDS ORDERED: [UNRECOGNIZED DRUG - OTHER] IV SCH (17:00)
[2018-06-30] MEDS ORDERED: FAT EMUL IV SCH ×2 (17:00)
[2018-06-30] MEDS ORDERED: SMOF TPN IV SCH ×2 (17:00)
[2018-06-30] MEDS ORDERED: [UNRECOGNIZED DRUG - OTHER] IV SCH (17:00)
[2018-06-30] MEDS ORDERED: FILTER, DISP 1.2 MICRON FOR TPN/PVN IV PRN (17:00)
[2018-06-30] MEDS ORDERED: AMINO ACID 10% IV SCH ×2 (17:00)
[2018-06-30 18:41] VITALS: BP 142/80
[2018-06-30] MEDS: RISPERIDONE 2 MG TABLET PO SCH (20:26)
[2018-07-01 00:40] VITALS: BP 119/72
[2018-07-01] MEDS: D5%-0.45% NACL 1,000 ML IV SCH ×2 (02:43→14:25)
[2018-07-01] MEDS: GUAIFENESIN 100 MG/5 ML, 5ML UDC PO PRN ×3 (02:43→18:33)
[2018-07-01] MEDS: ACETAMINOPHEN 325 MG TABLET PO PRN ×3 (02:43→22:36)
[2018-07-01] MEDS ORDERED: LEVOTHYROXINE 25 MCG TABLET ONE (05:34)
[2018-07-01] MEDS ORDERED: PROPRANOLOL 40 MG TABLET ONE ×2 (05:35→13:21)
[2018-07-01] MEDS: PROPRANOLOL 20 MG TABLET PO SCH ×2 (05:52→12:00)
[2018-07-01] MEDS: LEVOTHYROXINE 50 MCG TABLET PO SCH (05:53)
[2018-07-01 07:01] VITALS: BP 126/78
[2018-07-01] MEDS: INSULIN REGULAR LOW DOSE QDAY SQ-INSULIN SCH (09:00)
[2018-07-01] MEDS: NICOTINE 7 MG/24 HR PATCH.TD24 TD SCH (09:26)
[2018-07-01] MEDS: OXCARBAZEPINE 300MG TABLET PO SCH ×2 (09:27→20:42)
[2018-07-01 13:41] VITALS: BP 117/68
[2018-07-01] MEDS: RISPERIDONE 2 MG TABLET PO SCH (20:43)
[2018-07-01 21:27] VITALS: BP 115/72
[2018-07-02] MEDS: GUAIFENESIN 100 MG/5 ML, 5ML UDC PO PRN ×4 (00:39→21:49)
[2018-07-02 02:19] VITALS: BP 126/76
[2018-07-02] MEDS: D5%-0.45% NACL 1,000 ML IV SCH ×3 (03:00→23:15)
[2018-07-02] MEDS ORDERED: LEVOTHYROXINE 25 MCG TABLET ONE (04:28)
[2018-07-02] MEDS: PROPRANOLOL 20 MG TABLET PO SCH ×2 (05:15→12:00)
[2018-07-02] MEDS: LEVOTHYROXINE 50 MCG TABLET PO SCH (05:15)
[2018-07-02] MEDS: ACETAMINOPHEN 325 MG TABLET PO PRN ×3 (05:15→21:49)
[2018-07-02 07:13] VITALS: BP 106/69
[2018-07-02] MEDS: NICOTINE 7 MG/24 HR PATCH.TD24 TD SCH (10:10)
[2018-07-02] MEDS: OXCARBAZEPINE 300MG TABLET PO SCH ×2 (10:10→21:49)
[2018-07-02 12:14] VITALS: BP 102/61
[2018-07-02] MEDS ORDERED: PROPRANOLOL 40 MG TABLET ONE (12:54)
[2018-07-02 20:36] VITALS: BP 103/67
[2018-07-02] MEDS: RISPERIDONE 2 MG TABLET PO SCH (21:49)
[2018-07-03 00:43] VITALS: BP 110/65
[2018-07-03] MEDS: ACETAMINOPHEN 325 MG TABLET PO PRN (03:29)
[2018-07-03] MEDS: GUAIFENESIN 100 MG/5 ML, 5ML UDC PO PRN (03:30)
[2018-07-03] MEDS: LEVOTHYROXINE 50 MCG TABLET PO SCH (06:04)
[2018-07-03] MEDS: PROPRANOLOL 20 MG TABLET PO SCH ×2 (06:05→12:00)
[2018-07-03] MEDS: OXCARBAZEPINE 300MG TABLET PO SCH (07:57)
[2018-07-03] MEDS: D5%-0.45% NACL 1,000 ML IV SCH (07:57)
[2018-07-03 08:35] VITALS: BP 107/72
[2018-07-03] MEDS: NICOTINE 7 MG/24 HR PATCH.TD24 TD SCH (10:24)
[2018-07-03] MEDS ORDERED: ACET650S21 PO (10:26)
== END 2018-07-03 12:40 | disposition home or self-care (01) | DRG 393 ==
LOC: ED 16:57 → EDIP 18:46 → 4NOR 20:18
PROVIDERS: ADMIT Surgery; ATTEND Surgery
PROC: 02HV33Z Insertion of Infusion Device into Superior Vena Cava, Percutaneous Approach (ICD-10-PCS; principal; 2018-06-26)
PROC: B5181ZA Fluoroscopy of Superior Vena Cava using Low Osmolar Contrast, Guidance (ICD-10-PCS; 2018-06-26)
PROC: B548ZZA Ultrasonography of Superior Vena Cava, Guidance (ICD-10-PCS; 2018-06-26)
DX: K91.89 Other postprocedural complications and disorders of digestive system (principal); E43 Unspecified severe protein-calorie malnutrition; K56.609 Unspecified intestinal obstruction, unspecified as to partial versus complete obstruction; J98.19 Other pulmonary collapse; K56.7 Ileus, unspecified; E03.9 Hypothyroidism, unspecified; E11.9 Type 2 diabetes mellitus without complications; E78.5 Hyperlipidemia, unspecified; F17.200 Nicotine dependence, unspecified, uncomplicated; F31.9 Bipolar disorder, unspecified; I10 Essential (primary) hypertension; J44.9 Chronic obstructive pulmonary disease, unspecified; Y83.8 Other surgical procedures as the cause of abnormal reaction of the patient, or of later complication, without mention of misadventure at the time of the procedure; Z68.29 Body mass index [BMI] 29.0-29.9, adult; Z86.73 Personal history of transient ischemic attack (TIA), and cerebral infarction without residual deficits; Z90.710 Acquired absence of both cervix and uterus; Z90.49 Acquired absence of other specified parts of digestive tract; Z98.51 Tubal ligation status
CPT/HCPCS: 36415; 36573; 71046; 74018; 74021; 80048; 80053; 81001; 82962; 83735; 84100; 84134; 84478; 85025; 87086; 94640; 96374; 99285; G0378; J0610; J2405; J3010; J3475; J3480; J7613; C1751; J2270; J3420; J3490; J7040

== ENCOUNTER 2018-12-06 12:12 | Day surgery (SDC) | payer MEDICARE, MEDICAID ==
[~2018-12-06] VITALS: Ht 162.6 cm; Wt 74.0 kg
[~2018-12-06 12:12] MED LIST changes: +ACET650S21 PO
[2018-12-06] MEDS ORDERED: FAMOTIDINE 20 MG/2 ML IVPush ONE (12:30)
[2018-12-06] MEDS ORDERED: GABAPENTIN 300 MG CAPSULE PO ONE (12:30)
[2018-12-06] MEDS ORDERED: METOCLOPRAMIDE 5 MG/ML, 2ML IVPush ONE (12:30)
[2018-12-06] MEDS ORDERED: ACETAMINOPHEN 500 MG TABLET PO ONE (12:30)
[2018-12-06 12:55] VITALS: BP 130/85
[2018-12-06] MEDS ORDERED: PROCHLORPERAZINE 5 MG/ML, 2ML IV PRN (13:00)
[2018-12-06] MEDS ORDERED: PROMETHAZINE 25 MG/ML, 1ML IV PRN (13:00)
[2018-12-06] MEDS ORDERED: METOPROLOL 1 MG/ML, 5ML IV PRN (13:00)
[2018-12-06] MEDS ORDERED: HALOPERIDOL 5 MG/ML IV PRN ×2 (13:00)
[2018-12-06] MEDS ORDERED: FENTANYL PF 100 MCG/2ML IV PRN (13:00)
[2018-12-06] MEDS ORDERED: ALBUTEROL/IPRATROPIUM 2.5MG/0.5MG, 3 ML NPPB PRN (13:00)
[2018-12-06] MEDS ORDERED: hydrALAzine 20 MG/ML, 1ML IV PRN (13:00)
[2018-12-06] MEDS ORDERED: LABETALOL 5MG/ML, 20ML IV PRN (13:00)
[2018-12-06] MEDS ORDERED: HYDROmorphone 2 MG/ML, 1ML IVPush PRN (13:00)
[2018-12-06] MEDS ORDERED: OXYcodone 5 MG/5 ML ORAL.SOL UDC PO PRN ×2 (13:00→16:30)
[2018-12-06] MEDS ORDERED: PLEASE ENTER HEIGHT AND WEIGHT MC SCH (13:00)
[2018-12-06] MEDS ORDERED: DIPHENHYDRAMINE 50 MG/ML, 1ML IVPush PRN (13:00)
[2018-12-06] MEDS ORDERED: MEPERIDINE/PF 25MG/0.5ML IVPush PRN (13:00)
[2018-12-06] MEDS ORDERED: MIDAZOLAM 1 MG/ML, 2ML ONE (13:25)
[2018-12-06] MEDS ORDERED: FENTANYL PF 250 MCG/5ML ONE (13:25)
[2018-12-06] MEDS ORDERED: LORazepam 2 MG/ML, 1ML IVPush ONE (13:30)
[2018-12-06] MEDS ORDERED: LORazepam 2 MG/ML, 1ML ONE (13:45)
[2018-12-06] MEDS ORDERED: BUPIVACAINE/EPI 0.5% 1:200K ONE (14:00)
[2018-12-06] MEDS ORDERED: ALBUTEROL HFA 90 MCG/SPRAY ONE (14:30)
[2018-12-06] MEDS ORDERED: EPINEPHRINE 1 MG/ML, 1ML ONE (14:30)
[2018-12-06] MEDS ORDERED: LACTATED RINGERS 1,000 ML IV SCH (14:34)
[2018-12-06] MEDS ORDERED: CEFAZOLIN 1,000 MG ONE (15:39)
[2018-12-06] MEDS ORDERED: PROPOFOL 10 MG/ML, 20ML ONE (15:39)
[2018-12-06] MEDS ORDERED: GLYCOPYRROLATE 0.2MG/1ML, 5ML ONE (15:39)
[2018-12-06] MEDS ORDERED: ROCURONIUM 10MG/ML,5ML ONE (15:39)
[2018-12-06] MEDS ORDERED: DEXAMETHASONE 4 MG/ML, 1ML ONE (15:39)
[2018-12-06] MEDS ORDERED: NEOSTIGMINE 1 MG/ML, 10ML ONE (15:39)
[2018-12-06] MEDS ORDERED: SUCCINYLCHOLINE 20 MG/ML, 10ML ONE (15:39)
[2018-12-06] MEDS ORDERED: ONDANSETRON 2MG/ML, 2ML ONE (15:39)
[2018-12-06] MEDS ORDERED: ALBUTEROL/IPRATROPIUM 2.5MG/0.5MG, 3 ML ONE (16:29)
[2018-12-06] MEDS ORDERED: ONDANSETRON 2MG/ML, 2ML IVPush PRN (16:30)
[2018-12-06] MEDS ORDERED: KETOROLAC 30 MG/1 ML IVPush PRN (16:30)
[2018-12-06] MEDS ORDERED: morphine SULFATE 10 MG/ML, 1ML IVPush PRN (16:30)
[2018-12-06] MEDS ORDERED: OXYcodone 5 MG/5 ML ORAL.SOL UDC ONE (16:43)
[2018-12-06 20:07] VITALS: BP 121/80
== END 2018-12-06 22:44 | disposition home or self-care (01) ==
LOC: OUT 12:12 → 4NOR 17:45 → OUT 22:44
PROVIDERS: ATTEND Surgery
DX: K43.2 Incisional hernia without obstruction or gangrene (principal); J44.9 Chronic obstructive pulmonary disease, unspecified; E03.9 Hypothyroidism, unspecified; F31.9 Bipolar disorder, unspecified; K21.9 Gastro-esophageal reflux disease without esophagitis; Z90.49 Acquired absence of other specified parts of digestive tract; Z98.890 Other specified postprocedural states
CPT/HCPCS: 49560; 49568; 94640; C1781; J0171; J0330; J0690; J1100; J1885; J2060; J2250; J2405; J2704; J2710; J2765; J3010; J3490; J7120; J7620; G0378

== ENCOUNTER 2019-05-24 19:21 | Inpatient (IN) | payer MEDICARE, MEDICAID ==
[~2019-05-24] VITALS: Ht 160 cm; Wt 80.2 kg
--- NOTE | 2019-05-24 19:43 | NUR ---
pt ambulatory to ed from work. cough/congestion/sob x3 days. hx copd/asthma/pna. smoker. reports coughing up yellow phlegm. c/o chest pressure/tightness on coughing/breathing. sob worse on exertion. denies fevers/chills/n/v/d. sr on monitor. vss. awaiting md chapman. call smith in reach. as
--- NOTE | 2019-05-24 19:45 | NUR ---
denies flu shot, last took inhaler 1600. as
[2019-05-24] MEDS ORDERED: ALBUTEROL/IPRATROPIUM 2.5MG/0.5MG, 3 ML NPPB ONE (20:00)
--- NOTE | 2019-05-24 20:09 | NUR ---
pt to xr. labs drawn. awaiting breathing tx. as
[2019-05-24] MEDS ORDERED: ALBUTEROL/IPRATROPIUM 2.5MG/0.5MG, 3 ML ONE ×2 (20:15→21:47)
--- NOTE | 2019-05-24 20:32 | NUR ---
flu swab sent. sts feels better after breathing tx. as
[2019-05-24 20:45] LABS: BASOPHILS # (AUTO) 0.02 x10^3/uL (0-0.1); BASOPHILS % (AUTO) 0 % (0-1); EOSINOPHILS # (AUTO) 0.12 x10^3/uL (0-0.4); EOSINOPHILS % (AUTO) 2 % (1-7); LYMPHOCYTES # (AUTO) 2.64 x10^3/uL (1-3.4); LYMPHOCYTES % (AUTO) 44 % (22-44); MD NO; MEAN CORPUSCULAR HEMOGLOBIN 30.3 pg (27.0-34.8); MEAN CORPUSCULAR HGB CONC 33.1 g/dL (32.4-35.8); MEAN CORPUSCULAR VOLUME 91.3 fL (80-100); MEAN PLATELET VOLUME 9.1 fL (7.4-10.4); MONOCYTES # (AUTO) 0.55 x10^3/uL (0.2-0.8); MONOCYTES % (AUTO) 9 % (2-9); NEUTROPHILS # (AUTO) 2.73 x10^3/uL (1.8-6.8); NEUTROPHILS % (AUTO) 45 % (42-75); PLATELET COUNT 220 x10^3/uL (130-400); RED BLOOD COUNT 4.32 x10^6/uL (3.82-5.3); RED CELL DISTRIBUTION WIDTH 14.6 % (9.6-15.2)
[2019-05-24 20:49] LABS: ANION GAP 8 mmol/L (5-15); CALCIUM 8.6 mg/dL (8.5-10.1); CHLORIDE 99 mmol/L (98-107); CREATININE 0.71 mg/dL (0.55-1.02)
[2019-05-24 21:01] LABS: RAPID INFLUENZA A Negative (Negative); RAPID INFLUENZA B Negative (Negative)
[2019-05-24] MEDS ORDERED: ALBUTEROL SULFATE 2.5 MG/3 ML NPPB ONE (21:30)
--- NOTE | 2019-05-24 21:39 | NUR ---
prednisone per mar. plan for alb neb and d/c home, p does not want to stay. vss. call smith in reach NAD.
--- NOTE | 2019-05-24 22:30 | NUR ---
p to be admitted. piv est. production foreman at bedside for eval. as
--- NOTE | 2019-05-24 22:59 | NUR ---
REPORT TO YURIY BLACK.
[2019-05-24] MEDS ORDERED: ACETAMINOPHEN 325 MG TABLET PO PRN (23:00)
[2019-05-24] MEDS ORDERED: ONDANSETRON ODT 4 MG PO PRN (23:00)
[2019-05-24] MEDS ORDERED: LIDODERM 5% PATCH TD PRN (23:00)
[2019-05-24] MEDS ORDERED: TRAZODONE 50MG TABLET PO PRN (23:00)
[2019-05-24] MEDS ORDERED: ENOXAPARIN 40 MG/0.4 ML SQ SCH (23:00)
[2019-05-24] MEDS ORDERED: RISPERIDONE 2 MG TABLET PO SCH (23:00)
[2019-05-24] MEDS ORDERED: SIMETHICONE 125 MG CHEW TAB PO PRN (23:00)
[2019-05-24] MEDS ORDERED: ENALAPRILAT 1.25 MG/ML, 2ML IVPush PRN (23:00)
[2019-05-24] MEDS ORDERED: DOCUSATE 100 MG CAPSULE PO PRN (23:00)
[2019-05-24] MEDS ORDERED: RISPERIDONE 1 MG TABLET ONE (23:23)
[2019-05-24] MEDS: GUAIFENESIN ER 600 MG TABLET PO SCH (23:31)
[2019-05-25] MEDS ORDERED: OXCARBAZEPINE 150 MG TABLET PO ONE
[2019-05-25 00:18] VITALS: BP 130/70
[2019-05-25 01:50] VITALS: BP 122/64
[2019-05-25] MEDS: ALBUTEROL/IPRATROPIUM 2.5MG/0.5MG, 3 ML NPPB SCH ×2 (03:00→07:45)
[2019-05-25 06:07] LABS: BASOPHILS # (AUTO) 0.01 x10^3/uL (0-0.1); BASOPHILS % (AUTO) 0 % (0-1); EOSINOPHILS # (AUTO) 0.01 x10^3/uL (0-0.4); EOSINOPHILS % (AUTO) 0 % (1-7); LYMPHOCYTES # (AUTO) 0.99 x10^3/uL (1-3.4); LYMPHOCYTES % (AUTO) 18 % (22-44); MD NO; MEAN CORPUSCULAR HEMOGLOBIN 30.5 pg (27.0-34.8); MEAN CORPUSCULAR HGB CONC 32.9 g/dL (32.4-35.8); MEAN CORPUSCULAR VOLUME 92.5 fL (80-100); MEAN PLATELET VOLUME 9.3 fL (7.4-10.4); MONOCYTES # (AUTO) 0.16 x10^3/uL (0.2-0.8); MONOCYTES % (AUTO) 3 % (2-9); NEUTROPHILS # (AUTO) 4.35 x10^3/uL (1.8-6.8); NEUTROPHILS % (AUTO) 79 % (42-75); PLATELET COUNT 235 x10^3/uL (130-400); RED BLOOD COUNT 4.68 x10^6/uL (3.82-5.3); RED CELL DISTRIBUTION WIDTH 14.4 % (9.6-15.2)
[2019-05-25 06:14] LABS: ANION GAP 7 mmol/L (5-15); CALCIUM 9.1 mg/dL (8.5-10.1); CHLORIDE 105 mmol/L (98-107)
[2019-05-25 06:16] LABS: CREATININE 0.83 mg/dL (0.55-1.02)
[2019-05-25 07:15] VITALS: BP 148/82
[2019-05-25] MEDS: GUAIFENESIN ER 600 MG TABLET PO SCH (08:07)
[2019-05-25] MEDS ORDERED: PRED20TA PO (08:50)
[2019-05-25] MEDS ORDERED: PROPRANOLOL 20 MG TABLET PO SCH (09:00)
[2019-05-25] MEDS ORDERED: OXCARBAZEPINE 300MG TABLET PO SCH (09:00)
[2019-05-25] MEDS ORDERED: BUDESONIDE 0.5 MG/2 ML INHA NPPB SCH (09:00)
[2019-05-25] MEDS ORDERED: NICOTINE 14MG/24 HR PATCH.TD24 TD SCH (09:00)
[2019-05-25] MEDS ORDERED: LEVOTHYROXINE 50 MCG TABLET PO SCH (09:00)
[2019-05-25] MEDS ORDERED: FLU VACC QS2019-20 36MOS UP/PF 0.5 ML IM-VACC ONE (11:00)
== END 2019-05-25 12:15 | disposition home or self-care (01) | DRG 202 ==
LOC: ED 21:17 → EDIP 22:17 → 3N 23:11 → DCLOUNGE 05-25 12:01
PROVIDERS: ADMIT Family Medicine; ATTEND Family Medicine
DX: J20.9 Acute bronchitis, unspecified (principal); E87.1 Hypo-osmolality and hyponatremia; J44.0 Chronic obstructive pulmonary disease with (acute) lower respiratory infection; J44.1 Chronic obstructive pulmonary disease with (acute) exacerbation; K57.92 Diverticulitis of intestine, part unspecified, without perforation or abscess without bleeding; E03.9 Hypothyroidism, unspecified; E78.5 Hyperlipidemia, unspecified; F17.210 Nicotine dependence, cigarettes, uncomplicated; F31.9 Bipolar disorder, unspecified; I10 Essential (primary) hypertension; Z86.73 Personal history of transient ischemic attack (TIA), and cerebral infarction without residual deficits
CPT/HCPCS: 36415; 71046; 80048; 84145; 85025; 87400; 90686; 93005; 94640; 99291; G0378; J1650; J7613; J7620; J7626; J7512

== ENCOUNTER 2019-09-06 02:16 | Emergency (ER) | payer MEDICAID, MEDICARE ==
[~2019-09-06] VITALS: Ht 160 cm; Wt 216.8 kg
[~2019-09-06 02:16] MED LIST changes: +PRED20TA PO
--- NOTE | 2019-09-06 02:24 | NUR ---
PT TO ED WITH C/O WITH EPISTAXIS X30MIN AGO, BLEEDING CONTROLLED. PT REPORTS BLEEDING WAS FROM RIGHT NOSTRIL. PT DENIES ANY OTHER C/O AT THIS TIME. PT CONNECTED TO MONITORING CALL LIGHT WITHIN REACH, ALL SAFETY MEASURES IN PLACE. ERP IN ROOM TO EVAL PT AT THIS TIME.
--- NOTE | 2019-09-06 02:34 | NUR ---
NOSE CLAMP APPLIED TO PT AT THIS TIME.
[2019-09-06 04:37] VITALS: BP 114/58
== END 2019-09-06 04:39 | disposition home or self-care (01) ==
LOC: ED 04:20
DX: R04.0 Epistaxis (principal); J44.9 Chronic obstructive pulmonary disease, unspecified; E03.9 Hypothyroidism, unspecified; E78.5 Hyperlipidemia, unspecified; I51.9 Heart disease, unspecified; F17.200 Nicotine dependence, unspecified, uncomplicated; Z90.89 Acquired absence of other organs; Z90.710 Acquired absence of both cervix and uterus; Z98.51 Tubal ligation status
CPT/HCPCS: 99283

== ENCOUNTER 2019-09-06 10:10 | Emergency (ER) | payer MEDICARE ==
[~2019-09-06] VITALS: Ht 160 cm; Wt 80.4 kg
[2019-09-06] MEDS ORDERED: OXYMETAZOLINE NASAL SPRAY 0.05%,30ML ONE (10:25)
[2019-09-06] MEDS ORDERED: TRANEXAMIC ACID 100 MG/ML, 10ML ONE (10:25)
[2019-09-06] MEDS ORDERED: LORazepam 1MG TABLET PO ONE (11:00)
[2019-09-06] MEDS ORDERED: OXYMETAZOLINE NASAL SPRAY 0.05%, 15ML NAS ONE (11:00)
[2019-09-06] MEDS ORDERED: TRANEXAMIC ACID 100 MG/ML, 10ML TP ONE (11:00)
[2019-09-06] MEDS ORDERED: LORazepam 1MG TABLET ONE (11:05)
[2019-09-06 11:13] VITALS: BP 117/76
--- NOTE | 2019-09-06 11:14 | NUR ---
PT MEDICATED PER MAR, PT STATES SHE IS FEELING MUCH BETTER. REPORTS MINIMAL BLEEDING AT THIS TIME.
[2019-09-06 11:51] LABS: BASOPHILS # (AUTO) 0.07 x10^3/uL (0-0.1); BASOPHILS % (AUTO) 1 % (0-1); EOSINOPHILS # (AUTO) 0.08 x10^3/uL (0-0.4); EOSINOPHILS % (AUTO) 1 % (1-7); LYMPHOCYTES # (AUTO) 2.47 x10^3/uL (1-3.4); LYMPHOCYTES % (AUTO) 31 % (22-44); MD NO; MEAN CORPUSCULAR HEMOGLOBIN 30.1 pg (27.0-34.8); MEAN CORPUSCULAR HGB CONC 33.1 g/dL (32.4-35.8); MEAN CORPUSCULAR VOLUME 91.1 fL (80-100); MEAN PLATELET VOLUME 8.8 fL (7.4-10.4); MONOCYTES # (AUTO) 0.52 x10^3/uL (0.2-0.8); MONOCYTES % (AUTO) 7 % (2-9); NEUTROPHILS # (AUTO) 4.78 x10^3/uL (1.8-6.8); NEUTROPHILS % (AUTO) 60 % (42-75); PLATELET COUNT 256 x10^3/uL (130-400); RED BLOOD COUNT 4.66 x10^6/uL (3.82-5.3); RED CELL DISTRIBUTION WIDTH 14.3 % (9.6-15.2)
[2019-09-06 11:59] LABS: INTERNATIONAL NORMALIZED RATIO 0.94 (0.93-1.1)
== END 2019-09-06 12:32 | disposition home or self-care (01) ==
LOC: ED 10:35
DX: R04.0 Epistaxis (principal); F41.1 Generalized anxiety disorder; R51 Headache; J44.9 Chronic obstructive pulmonary disease, unspecified; E78.5 Hyperlipidemia, unspecified; E03.9 Hypothyroidism, unspecified; Z86.73 Personal history of transient ischemic attack (TIA), and cerebral infarction without residual deficits; Z98.51 Tubal ligation status; Z90.89 Acquired absence of other organs; Z90.710 Acquired absence of both cervix and uterus
CPT/HCPCS: 30901; 36415; 85025; 85610; 99283; 99284

== ENCOUNTER 2019-09-07 17:27 | Inpatient (IN) | payer MEDICARE, MEDICAID ==
[~2019-09-07] VITALS: Ht 160 cm; Wt 79.2 kg
--- NOTE | 2019-09-07 17:35 | NUR ---
PT WHEELED BACK TO ROOM VIA WC.
--- NOTE | 2019-09-07 17:42 | NUR ---
REPORT OBTAINED FROM SOFIA RED. ASSUMING CARE OF PT.
--- NOTE | 2019-09-07 17:52 | NUR ---
PT STATES BLEEDING STARTED AGAIN THIS AM. PT WAS SEEN 2 TIMES YESTERDAY FOR SAME REASON. PT STATED "LOTS OF BLOOD CLOTS" OUT OF MY NOSE.
--- NOTE | 2019-09-07 18:06 | NUR ---
ERMD AT BEDSIDE.
--- NOTE | 2019-09-07 18:36 | NUR ---
RN INFORMED MD THAT PT'S RIGHT NOSTRIL IS BLEEDING.
--- NOTE | 2019-09-07 18:55 | NUR ---
REPORT TO SOFIA ABARCA.
[2019-09-07] MEDS ORDERED: OXYcodone/APAP 7.5/325MG TABLET ONE (19:25)
[2019-09-07] MEDS ORDERED: ONDANSETRON ODT 8 MG ONE (19:28)
[2019-09-07] MEDS ORDERED: OXYcodone/APAP 7.5/325MG TABLET PO ONE (19:30)
[2019-09-07] MEDS ORDERED: ONDANSETRON ODT 8 MG PO ONE (19:30)
[2019-09-07 19:45] LABS: BASOPHILS # (AUTO) 0.08 x10^3/uL (0-0.1); BASOPHILS % (AUTO) 1 % (0-1); EOSINOPHILS # (AUTO) 0.12 x10^3/uL (0-0.4); EOSINOPHILS % (AUTO) 1 % (1-7); LYMPHOCYTES # (AUTO) 2.93 x10^3/uL (1-3.4); LYMPHOCYTES % (AUTO) 30 % (22-44); MD NO; MEAN CORPUSCULAR HEMOGLOBIN 30.1 pg (27.0-34.8); MEAN CORPUSCULAR HGB CONC 32.5 g/dL (32.4-35.8); MEAN CORPUSCULAR VOLUME 92.4 fL (80-100); MEAN PLATELET VOLUME 9.1 fL (7.4-10.4); MONOCYTES # (AUTO) 0.54 x10^3/uL (0.2-0.8); MONOCYTES % (AUTO) 6 % (2-9); NEUTROPHILS # (AUTO) 5.99 x10^3/uL (1.8-6.8); NEUTROPHILS % (AUTO) 62 % (42-75); PLATELET COUNT 277 x10^3/uL (130-400); RED BLOOD COUNT 3.98 x10^6/uL (3.82-5.3); RED CELL DISTRIBUTION WIDTH 13.9 % (9.6-15.2)
--- NOTE | 2019-09-07 19:48 | NUR ---
Assumed patient care, provider at bedside completing packing of both nostrils. RN assisted cleaning patient. RN returned with analgesic and antiemetic medication. Patient then provided with ice packs, applied to back of neck and accross bridge of nose.
[2019-09-07 19:56] LABS: ANION GAP 5 mmol/L (5-15); CALCIUM 9.1 mg/dL (8.5-10.1); CHLORIDE 109 mmol/L (98-107)
[2019-09-07 19:57] LABS: CREATININE 0.84 mg/dL (0.55-1.02)
--- NOTE | 2019-09-07 21:00 | NUR ---
REPORT RECEIVED FROM SOFIA CRESPO
--- NOTE | 2019-09-07 21:06 | NUR ---
PT UPDATED ON POC. PT DENIES ANY NEEDS AT THIS TIME.
[2019-09-07] MEDS ORDERED: ACETAMINOPHEN 650 MG/20.3 ML UDC PO PRN (22:30)
[2019-09-07] MEDS ORDERED: TEMPLATE NON-FORMULARY MED. (Albuterol Sulfate (Ventolin Hfa) 1 PUFF) PO SCH (22:30)
[2019-09-07 23:06] VITALS: BP 127/83
[2019-09-07] MEDS ORDERED: ONDANSETRON 2MG/ML, 2ML IVPush PRN (23:30)
[2019-09-07] MEDS ORDERED: morphine SULFATE 10 MG/ML, 1ML IVPush PRN (23:30)
[2019-09-07] MEDS ORDERED: ACETAMINOPHEN 325 MG TABLET PO PRN (23:30)
[2019-09-08] MEDS ORDERED: OXCARBAZEPINE 150 MG TABLET PO ONE
[2019-09-08] MEDS ORDERED: RISPERIDONE 2 MG TABLET PO ONE
[2019-09-08] MEDS ORDERED: RISPERIDONE 1 MG TABLET ONE (00:03)
[2019-09-08] MEDS: AMPICILLIN/SULBACTAM 1,500 MG in SODIUM CHLORIDE 0.9% 50 ML IV SCH ×3 (00:09→11:48)
[2019-09-08] MEDS ORDERED: ALBUTEROL/IPRATROPIUM 2.5MG/0.5MG, 3 ML ONE (00:47)
[2019-09-08 00:50] VITALS: BP 137/75
[2019-09-08] MEDS: ALBUTEROL/IPRATROPIUM 2.5MG/0.5MG, 3 ML NPPB SCH ×2 (02:00→09:00)
[2019-09-08] MEDS ORDERED: LEVOTHYROXINE 50 MCG TABLET PO SCH (06:00)
[2019-09-08 06:32] LABS: BASOPHILS # (AUTO) 0.03 x10^3/uL (0-0.1); BASOPHILS % (AUTO) 1 % (0-1); EOSINOPHILS # (AUTO) 0.04 x10^3/uL (0-0.4); EOSINOPHILS % (AUTO) 1 % (1-7); LYMPHOCYTES # (AUTO) 2.78 x10^3/uL (1-3.4); LYMPHOCYTES % (AUTO) 40 % (22-44); MD NO; MEAN CORPUSCULAR HEMOGLOBIN 30.1 pg (27.0-34.8); MEAN CORPUSCULAR HGB CONC 32.8 g/dL (32.4-35.8); MEAN CORPUSCULAR VOLUME 91.7 fL (80-100); MONOCYTES # (AUTO) 0.44 x10^3/uL (0.2-0.8); MONOCYTES % (AUTO) 6 % (2-9); NEUTROPHILS % (AUTO) 52 % (42-75); PLATELET COUNT 209 x10^3/uL (130-400); RED BLOOD COUNT 3.34 x10^6/uL (3.82-5.3)
[2019-09-08 06:33] LABS: ANION GAP 5 mmol/L (5-15); CALCIUM 8.7 mg/dL (8.5-10.1); CHLORIDE 109 mmol/L (98-107); CREATININE 0.76 mg/dL (0.55-1.02)
[2019-09-08 07:09] VITALS: BP 109/75
[2019-09-08] MEDS: PROPRANOLOL 20 MG TABLET PO SCH ×2 (07:37→09:34)
[2019-09-08] MEDS: OXCARBAZEPINE 300MG TABLET PO SCH ×2 (07:38→09:34)
[2019-09-08] MEDS ORDERED: TEMPLATE NON-FORMULARY MED. (Tiotropium Bromide** (Spiriva**) 18 MCG) INH SCH (09:00)
[2019-09-08] MEDS ORDERED: BUDESONIDE 0.5 MG/2 ML INHA NPPB SCH (09:00)
[2019-09-08] MEDS ORDERED: TEMPLATE NON-FORMULARY MED. (Budesonide/Formoterol Fumarate (Symbicort 160-4.5 Mcg Inhaler INH SCH (09:00)
[2019-09-08 09:19] LABS: INTERNATIONAL NORMALIZED RATIO 0.94 (0.93-1.1)
[2019-09-08] MEDS ORDERED: AMOX1TAB61 PO (09:20)
[2019-09-08] MEDS ORDERED: RISPERIDONE 2 MG TABLET PO SCH (21:00)
== END 2019-09-08 12:45 | disposition home or self-care (01) | DRG 151 ==
LOC: ED 18:58 → EDIP 22:21 → 3N 22:42
PROVIDERS: ADMIT Family Medicine; ATTEND Hospitalist
PROC: 2Y41X5Z Packing of Nasal Region using Packing Material (ICD-10-PCS; principal; 2019-09-07)
DX: R04.0 Epistaxis (principal); D62 Acute posthemorrhagic anemia; J44.9 Chronic obstructive pulmonary disease, unspecified; F31.9 Bipolar disorder, unspecified; E03.9 Hypothyroidism, unspecified; E78.5 Hyperlipidemia, unspecified; I10 Essential (primary) hypertension; F17.210 Nicotine dependence, cigarettes, uncomplicated; Z90.49 Acquired absence of other specified parts of digestive tract; Z90.710 Acquired absence of both cervix and uterus; Z98.51 Tubal ligation status; Z86.73 Personal history of transient ischemic attack (TIA), and cerebral infarction without residual deficits
CPT/HCPCS: 36415; 80048; 85014; 85018; 85025; 85610; 93005; 94640; 99285; G0378; J7626; Q0162; J0295

== ENCOUNTER 2019-10-20 08:29 | Outpatient (CLI) | payer MEDICARE, MEDICAID ==
[~2019-10-20 08:29] MED LIST changes: +AMOX1TAB61 PO
[2019-10-20] MEDS ORDERED: breo INH (09:16)
[2019-10-20] MEDS ORDERED: ALBU1.25 NEB (09:16)
[2019-10-20] MEDS ORDERED: CETI10CA PO (09:16)
[2019-10-20] MEDS ORDERED: MELA1TAB8 PO (09:17)
== END 2019-10-20 23:59 | disposition home or self-care (01) ==
LOC: STAR 08:29
PROVIDERS: ATTEND Surgery
DX: Z01.818 Encounter for other preprocedural examination (principal); Z11.59 Encounter for screening for other viral diseases; K43.2 Incisional hernia without obstruction or gangrene
CPT/HCPCS: 93005; U0001

== ENCOUNTER 2019-10-24 10:24 | Observation (INO) | payer MEDICARE, MEDICAID ==
[~2019-10-24] VITALS: Ht 161.3 cm; Wt 80.5 kg
[~2019-10-24 10:24] MED LIST changes: +ALBU1.25 NEB; +CETI10CA PO; +MELA1TAB8 PO; +breo INH
[2019-10-24] MEDS ORDERED: LACTATED RINGERS 1,000 ML IV SCH (10:40)
[2019-10-24] MEDS ORDERED: BUPIVACAINE/PF-EPI 0.5% 1:200K ONE (10:54)
[2019-10-24] MEDS ORDERED: CHLORHEXIDINE 15 ML UDC MM ONE (11:00)
[2019-10-24] MEDS ORDERED: LIDOCAINE-MPF 1%, 2ML INFIL ONE (11:00)
[2019-10-24] MEDS ORDERED: CHLORHEXIDINE 15 ML UDC ONE (11:20)
[2019-10-24] MEDS ORDERED: PROPOFOL 10 MG/ML, 20ML ONE (12:32)
[2019-10-24] MEDS ORDERED: PROPOFOL 50 ML ONE ×2 (12:32→13:23)
[2019-10-24] MEDS ORDERED: MIDAZOLAM 1 MG/ML, 2ML ONE (12:33)
[2019-10-24] MEDS ORDERED: FENTANYL PF 250 MCG/5ML ONE (12:33)
[2019-10-24] MEDS ORDERED: DEXAMETHASONE 4 MG/ML, 1ML ONE (12:39)
[2019-10-24] MEDS ORDERED: CEFAZOLIN PMX 1GM/50ML ONE (12:39)
[2019-10-24] MEDS ORDERED: SUCCINYLCHOLINE 20 MG/ML, 10ML ONE (12:39)
[2019-10-24] MEDS ORDERED: EPINEPHRINE SYRINGE 0.1 MG/ML, 10ML ONE (12:39)
[2019-10-24] MEDS ORDERED: ONDANSETRON 2MG/ML, 2ML ONE (12:39)
[2019-10-24] MEDS ORDERED: ROCURONIUM 10MG/ML,5ML ONE (12:57)
[2019-10-24] MEDS ORDERED: ALBUTEROL HFA 90 MCG/SPRAY ONE (12:57)
[2019-10-24] MEDS ORDERED: SUGAMMADEX 200 MG/2 ML IVPush ONE (13:26)
[2019-10-24] MEDS ORDERED: EPHEDRINE 50 MG/ML, 1ML IM PRN (13:30)
[2019-10-24] MEDS ORDERED: DIPHENHYDRAMINE 50 MG/ML, 1ML IVPush PRN (13:30)
[2019-10-24] MEDS ORDERED: METOPROLOL 1 MG/ML, 5ML IV PRN (13:30)
[2019-10-24] MEDS ORDERED: HYDROmorphone 1 MG/ML, 1ML INJ IVPush PRN (13:30)
[2019-10-24] MEDS ORDERED: hydrALAzine 20 MG/ML, 1ML IV PRN ×2 (13:30→14:00)
[2019-10-24] MEDS ORDERED: FENTANYL PF 100 MCG/2ML IV PRN (13:30)
[2019-10-24] MEDS ORDERED: OXYcodone 5 MG/5 ML ORAL.SOL UDC PO PRN (13:30)
[2019-10-24] MEDS ORDERED: PROMETHAZINE 25 MG/ML, 1ML IVPush PRN (13:30)
[2019-10-24] MEDS ORDERED: ONDANSETRON 2MG/ML, 2ML IVPush PRN ×2 (13:30→14:00)
[2019-10-24] MEDS ORDERED: EPHEDRINE 50 MG/ML, 1ML IVPush PRN (13:30)
[2019-10-24] MEDS ORDERED: DIAZEPAM 5 MG/ML, 2ML IVPush PRN (13:30)
[2019-10-24] MEDS ORDERED: ACETAMINOPHEN 325 MG TABLET PO PRN (13:30)
[2019-10-24] MEDS ORDERED: ALBUTEROL/IPRATROPIUM 2.5MG/0.5MG, 3 ML NPPB PRN (13:30)
[2019-10-24] MEDS ORDERED: DIPHENHYDRAMINE 50 MG/ML, 1ML IV PRN (14:00)
[2019-10-24] MEDS ORDERED: DIPHENHYDRAMINE 25 MG CAPSULE PO PRN (14:00)
[2019-10-24] MEDS ORDERED: ENALAPRILAT 1.25 MG/ML, 2ML IV PRN (14:00)
[2019-10-24] MEDS ORDERED: LORazepam 2 MG/ML, 1ML IV PRN (14:00)
[2019-10-24] MEDS ORDERED: ACETAMINOPHEN 650 MG/20.3 ML UDC PO PRN (14:00)
[2019-10-24] MEDS ORDERED: HYDROcodone/APAP 7.5-325MG/15ML UDC ONE (14:44)
[2019-10-24] MEDS ORDERED: D5%-0.45NACL+KCL 20MEQ 1,000 ML IV SCH (16:30)
[2019-10-24] MEDS ORDERED: ENOXAPARIN 40 MG/0.4 ML SQ SCH (17:00)
[2019-10-24] MEDS ORDERED: MELATONIN 5 MG TABLET PO PRN (17:00)
[2019-10-24] MEDS ORDERED: ALBUTEROL SULFATE 2.5 MG/3 ML NPPB PRN (17:00)
[2019-10-24 19:23] VITALS: BP 118/76
[2019-10-24] MEDS: BUDESONIDE 0.5 MG/2 ML INHA NPPB SCH (20:18)
[2019-10-24] MEDS: ALBUTEROL SULFATE 2.5 MG/3 ML NPPB SCH (20:18)
[2019-10-24] MEDS: OXCARBAZEPINE 300MG TABLET PO SCH (20:29)
[2019-10-24] MEDS ORDERED: RISPERIDONE 2 MG TABLET PO SCH (21:00)
[2019-10-24] MEDS: KETOROLAC 30 MG/1 ML IV PRN (23:30)
[2019-10-24 23:59] VITALS: BP 106/65
[2019-10-25 04:25] VITALS: BP 132/74
[2019-10-25] MEDS: KETOROLAC 30 MG/1 ML IV PRN ×2 (05:52→05:53)
[2019-10-25] MEDS ORDERED: BUDESONIDE MC SCH (06:00)
[2019-10-25] MEDS ORDERED: FLUTICASONE FUROATE MC SCH (06:00)
[2019-10-25] MEDS ORDERED: VILANTEROL MC SCH (06:00)
[2019-10-25] MEDS ORDERED: LEVOTHYROXINE 50 MCG TABLET PO SCH (06:00)
[2019-10-25] MEDS ORDERED: FORMOTEROL MC SCH (06:00)
[2019-10-25 06:07] LABS: ALBUMIN 3.3 g/dL (3.4-5.0); ANION GAP 7 mmol/L (5-15); CALCIUM 8.5 mg/dL (8.5-10.1); CHLORIDE 106 mmol/L (98-107); CREATININE 0.71 mg/dL (0.55-1.02)
[2019-10-25 06:32] LABS: BASOPHILS # (AUTO) 0.01 x10^3/uL (0-0.1); BASOPHILS % (AUTO) 0 % (0-1); EOSINOPHILS # (AUTO) 0.12 x10^3/uL (0-0.4); EOSINOPHILS % (AUTO) 1 % (1-7); LYMPHOCYTES # (AUTO) 1.86 x10^3/uL (1-3.4); LYMPHOCYTES % (AUTO) 21 % (22-44); MD NO; MEAN CORPUSCULAR HEMOGLOBIN 25.6 pg (27.0-34.8); MEAN CORPUSCULAR HGB CONC 31.1 g/dL (32.4-35.8); MEAN CORPUSCULAR VOLUME 82.4 fL (80-100); MONOCYTES # (AUTO) 0.72 x10^3/uL (0.2-0.8); MONOCYTES % (AUTO) 8 % (2-9); NEUTROPHILS % (AUTO) 69 % (42-75); PLATELET COUNT 288 x10^3/uL (130-400); RED BLOOD COUNT 3.79 x10^6/uL (3.82-5.3); RED CELL DISTRIBUTION WIDTH 18.7 % (9.6-15.2)
[2019-10-25 07:26] VITALS: BP 105/68
[2019-10-25] MEDS: OXCARBAZEPINE 300MG TABLET PO SCH (07:49)
[2019-10-25] MEDS ORDERED: PROPRANOLOL 20 MG TABLET PO SCH (08:00)
[2019-10-25] MEDS: ALBUTEROL SULFATE 2.5 MG/3 ML NPPB SCH (08:34)
[2019-10-25] MEDS: BUDESONIDE 0.5 MG/2 ML INHA NPPB SCH (08:34)
[2019-10-25] MEDS ORDERED: BUDESONIDE 0.5 MG/2 ML INHA NPPB SCH (09:00)
[2019-10-25] MEDS ORDERED: SYMBICORT INH SCH (09:00)
[2019-10-25] MEDS ORDERED: CETIRIZINE 10 MG TABLET PO SCH (09:00)
[2019-10-25] MEDS ORDERED: BREO INH SCH (09:00)
[2019-10-25] MEDS ORDERED: HYDR-3240 PO (09:40)
[2019-10-25] MEDS ORDERED: ONDA4TAB7 PO (09:41)
== END 2019-10-25 11:17 | disposition home or self-care (01) ==
LOC: OUT 10:24 → ORIP 14:02 → 4NE 15:46 → DCLOUNGE 10-25 11:08
PROVIDERS: ADMIT Surgery; ATTEND Surgery
DX: K43.2 Incisional hernia without obstruction or gangrene (principal); K66.0 Peritoneal adhesions (postprocedural) (postinfection); E66.9 Obesity, unspecified; J44.9 Chronic obstructive pulmonary disease, unspecified; F31.9 Bipolar disorder, unspecified; I10 Essential (primary) hypertension; E03.9 Hypothyroidism, unspecified; Z79.899 Other long term (current) drug therapy; F17.200 Nicotine dependence, unspecified, uncomplicated; Z68.31 Body mass index [BMI] 31.0-31.9, adult
CPT/HCPCS: 36415; 49565; 49568; 80048; 82040; 85025; 94640; 96372; 96374; 96375; C1781; G0378; J0330; J0690; J1100; J1650; J1885; J2250; J2405; J2704; J3010; J3480; J7120; J7613

== ENCOUNTER 2020-10-02 10:20 | Emergency (ER) | payer MEDICARE, MEDICAID ==
[~2020-10-02] VITALS: Ht 160 cm; Wt 87.0 kg
[~2020-10-02 10:20] MED LIST changes: +HYDR-2214 PO; -HYDR-3240 PO; -RISP2TAB3 PO; +RISP2TAB80 PO
--- NOTE | 2020-10-02 10:46 | NUR ---
CONTACT WITH PT. 59 YR OLD FEMALE HERE WITH C/O "COUGH, SINUSES, NOT FEELING GOOD." HAS BEEN WEDNESDAY. "[place] ROOMATE CAME [place] FROM [place] ON WEDNESDAY. SHE CAME HERE SICK AND THIS ALL HIT ME LIKE A TON OF BRICKS ON WEDNESDAY"
[2020-10-02] MEDS ORDERED: ALBUTEROL/IPRATROPIUM 2.5MG/0.5MG, 3 ML ONE ×2 (10:56→11:34)
--- NOTE | 2020-10-02 11:01 | NUR ---
PT UPDATED ON POC. NO NEEDS EXPRESSED AT THIS TIME.
[2020-10-02 11:19] LABS: BASOPHILS % (AUTO) 1 % (0-1); EOSINOPHILS % (AUTO) 2 % (1-7); LYMPHOCYTES % (AUTO) 23 % (22-44); MD NO; MEAN CORPUSCULAR HEMOGLOBIN 29.5 pg (27.0-34.8); MEAN CORPUSCULAR HGB CONC 33.2 g/dL (32.4-35.8); MEAN PLATELET VOLUME 8.8 fL (7.4-10.4); MONOCYTES % (AUTO) 8 % (2-9); NEUTROPHILS % (AUTO) 66 % (42-75); PLATELET COUNT 232 x10^3/uL (130-400); RED CELL DISTRIBUTION WIDTH 14.9 % (9.6-15.2)
[2020-10-02 11:24] LABS: ALANINE AMINOTRANSFERASE 17 U/L (12-78); ALBUMIN 3.4 g/dL (3.4-5.0); ANION GAP 5 mmol/L (5-15); CHLORIDE 102 mmol/L (98-107); CREATININE 0.53 mg/dL (0.55-1.02)
[2020-10-02 11:29] LABS: ALKALINE PHOSPHATASE 118 U/L (45-117); BILIRUBIN,TOTAL 0.6 mg/dL (0.2-1.0); TOTAL PROTEIN 6.7 g/dL (6.4-8.2); TROPONIN I < 0.015 ng/mL (0.000-0.045)
[2020-10-02] MEDS: ALBUTEROL/IPRATROPIUM 2.5MG/0.5MG, 3 ML NPPB SCH ×2 (11:33→11:54)
--- NOTE | 2020-10-02 11:38 | NUR ---
RT TX STARTED. PT CONT SR PER MONITOR. AUTO BP AND PULSE OX IN PLACE. PT AWARE OF WAITING FOR TEST RESULTS. NO NEEDS EXPRESSED AT THIS TIME.
--- NOTE | 2020-10-02 11:54 | NUR ---
RECEIVED 2 DOSES OF DUONEB. STATES "CAN GET A DEEPER BREATH." DECREASED WHEEZES IN RIGHT LUNG NOTED. SR PER MONITOR.
[2020-10-02] MEDS ORDERED: FLUT1BLS3 IH (11:58)
--- NOTE | 2020-10-02 12:09 | NUR ---
Break RN: MD Corbin back to bedside to update pt on POC.
[2020-10-02 12:24] VITALS: BP 116/69
== END 2020-10-02 12:31 | disposition home or self-care (01) ==
LOC: ED 12:25
DX: J43.9 Emphysema, unspecified (principal); Z20.822 Contact with and (suspected) exposure to COVID-19; J40 Bronchitis, not specified as acute or chronic; R94.31 Abnormal electrocardiogram [ECG] [EKG]; F17.200 Nicotine dependence, unspecified, uncomplicated; E78.5 Hyperlipidemia, unspecified; E03.9 Hypothyroidism, unspecified; Z86.73 Personal history of transient ischemic attack (TIA), and cerebral infarction without residual deficits; Z90.49 Acquired absence of other specified parts of digestive tract; Z90.710 Acquired absence of both cervix and uterus
CPT/HCPCS: 36415; 71045; 80053; 83880; 84484; 85025; 93005; 94640; 99285; J7512; U0003; U0005

== ENCOUNTER 2021-01-28 08:05 | Outpatient (CLI) | payer MEDICARE, MEDICAID ==
[~2021-01-28 08:05] MED LIST changes: +FLUT1BLS3 IH
== END 2021-01-28 23:59 | disposition home or self-care (01) ==
LOC: CFH 08:05
PROVIDERS: ATTEND Nurse Practitioner Family
DX: Z12.2 Encounter for screening for malignant neoplasm of respiratory organs (principal); F17.210 Nicotine dependence, cigarettes, uncomplicated; I25.10 Atherosclerotic heart disease of native coronary artery without angina pectoris; J84.10 Pulmonary fibrosis, unspecified
CPT/HCPCS: 71271